=== PATIENT | male | born 1945 | race Caucasian/White ===

== ENCOUNTER 2022-11-03 18:24 | Inpatient (IN) | payer MEDICARE, MEDICAID, SELFPAY ==
[2022-11-03] VITALS (70 sets, daily range): BP systolic 73–105; BP diastolic 46–68; PULSE 92–113; RESP 13–40; TEMP 39.1; O2SAT 81–100; BMI 25.1
--- NOTE | 2022-11-03 18:07 | PM.HP ---
Providers/Chief Complaint Admitting Physician: Hema Boykin MD Chief Complaint: resp failure/sepsis History of Present Illness Reilly Patrick is a 77 year old male Coding Level of Care Code Acute Code for Chg Fwd
--- NOTE | 2022-11-03 18:27 | ECG_ITS ---
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1945 Requested By: Hema Boykin Order Number: [id number] Reading MD: TAMMY AGUAYO Measurements Intervals [place] Rate: 115 P: 5 CT: 248 QRS: -86 QRSD: 141 T: 34 QT: 325 QTc: 450 Interpretive Statements SINUS TACHYCARDIA WITH FIRST DEGREE AV BLOCK RIGHT BUNDLE BRANCH BLOCK [120+ ms QRS DURATION, UPRIGHT V1, 40+ ms S IN I/aVL/V4/V5/V6] LEFT ANTERIOR FASCICULAR BLOCK [QRS AXIS <= -45, QR IN I, RS IN II] No previous ECG available for comparison Electronically Signed On 11-04-2022 23:42:45 CDT by TAMMY AGUAYO [id number] f
--- NOTE | 2022-11-03 18:27 | XRR_ITS ---
PROCEDURE INFORMATION: Exam: XR Chest Exam date and time: 11/03/2022 6:43 PM Age: 77 years old Clinical indication: Shortness of breath; Additional info: Acute respiratory failure TECHNIQUE: Imaging protocol: Radiologic exam of the chest. Views: 1 view. COMPARISON: No relevant prior studies available. FINDINGS: Lungs: Increased pulmonary markings especially in the mid to lower chest suspicious for edema. Pulmonary vasculature appears congested. Mild narrowing of subglottic trachea with transverse diameter estimated at 1.2 cm as compared to 1.7 cm at thoracic inlet level. Pleural spaces: No pneumothorax. Heart/Mediastinum: Borderline prominence of cardiac silhouette. Bones/joints: No acute findings. XR/XR chest 1V portable [id number] IMPRESSION: Increased pulmonary markings suspicious for edema.
--- NOTE | 2022-11-03 18:37 | P.HP_ITS ---
Providers/Chief Complaint Admitting Physician: Hema Boykin MD Primary Care Provider: UNKNOWN Chief Complaint: resp failure/sepsis History of Present Illness Reilly Patrick is a 77 year old male transfer from [facility] for acute hypercapneic hypoxemic respiratory failure, sepsis, Acute Systolic HF and AMS. Discussed case with Dr. Shepherd. I accepted the transfer. On arrival to ICU pt was on 15L NR, minimally responsive, febrile 103.2 F (per EMS) hypotensive and tachycardic. Pt was immediately met by RT and with assistance of Dr. Cesar placed on BIPAP. Subsequently we began medical conversion of tachyarrythmia. Pt was given adenosine 12mg, additional 12m required. amiodarone also administered. pts HR responded well and started on amiodarone gtt. Per discussion with Dr. Shepherd, pt was in NH on the AM of 11/04. between 08:00 and 12:00 staff recognized he became more lethargic and labored with breathing. Upon arival to ED there was concern for resp failure sepsis and heart failure. initial GCM was 14 then dropped to 8. sepsis protocol initiated due to hypote nsion, tachycardia and concern for aspiration PNA given CXR. after 1L bolus NS given, pt required more non-rebreather up to 15L holding 90% sat. Immediately lasix 40mg IVP given and sats improved; however pt continued to be tachy from 120-150. bloodwork shows elevated WBC 14, BNP 926, trops 0.032, Cr 1.0, BUUN 21, Lactic acid 3.4. UA clean Pt seen at bedside unable to give definitive history. Able to follow commands but unable to give information in regards to events that transpired this AM, mig[address] medical Hx, medications. Family is not at bedside. pt was able to admit to feeling improved, SOB, fast heart rate, confused. Denied CP. unable to attain: Full Hx, Medical Hx, medication list. Review of Systems General: Reports: ROS unobtainable due to medical condition Const: Denies: chills or body aches Eyes: Denies: change in vision ENMT: Denies: throat pain Card: Reports: palpitations; Denies: chest pain Resp: Reports: dyspnea GI: Denies: abdominal pain or nausea Musc: Denies: neck pain or back pain Neuro: Denies: headache(s), numbness in extremities or weakness in extremities Medications/Allergies Allergies Allergy/AdvReac Type Severity Reaction Status Date / Time No Known Drug Allergies Allergy Unknown Verified 11/03/22 18:54 PFSH Acute PFSH: Medical History (Updated 11/03/22 @ 19:36 by Hema Boykin MD) CHF (congestive heart failure) Dementia TOMAS (generalized anxiety disorder) Insomnia 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 on BIPAP, tremors in bilateral upper extremity, diaphoretic psych: confused, GSC 14 Head: atraumatic, normocephalic, no mass/lesions Eyes: conjunctiva clear w/o exudate or hemorrhage. non-icteric, EOM intact, PERRLA. no signs of nystagmus Nose: nasal mucosa pink, septum midline Oropharynx: poor dentition, no blood present. BIPAP over mouth. Neck: FROM, no lymphadenopathy, no tracheal deviation, non tender, thyroid gland normal w/o mass. supple Chest: atraumatic, symmetrical CVD: tachycardic, regular rhythm, normal S1 and S2, 2/6 ALONZO in LSB audable, no R/G. 2+ pulse x 4 extremities, no JVD, no carotid bruit. Lungs: poor inspiratory effort on examination, BIPAP working well, audible rhonchi, possible crackles in lower lung base. No wheezing or rales. Abdomen: NT, ND, soft, NABS. No hepatosplenomegaly, no mass. : appropriate anatomy, Femoral pulse adequate Spine: no visible deformities, Limited visible ROM. Extremities: FROM and 5/5 strength in BUE and BLE. no visible joint abnormalities on active and passive ROM. Neuro: CNII-XII grossly intact. No atrophy, weakness, tremors or clonus.? 2+ DTR, no sensory abnormalities. Skin:? no rash, vesicles, lesions or lac, pads on pts chest, leads present. 2 IV lines (one in each arm). Data 11/03/22 19:00 11/03/22 19:00 Other data: Hospital records in paper chart. Pt only came with CBC, CMP, UA, EKG. minimal note written. no Hx besides what is on document. A&P Assessment and plan (1) Acute hypoxemic respiratory failure: BIPAP will get repeat ABG in AM consider pum consult if pt worsens low threshold for intubation if required (2) Dyspnea: Qualifiers: Dyspnea type: shortness of breath Qualified Code(s): R06.02 - Shortness of breath (3) Septic shock: Unclear etiology: concern for HAP given NH placement. BP holding steady, levophed gtt on HOLD continue Vanc, Imipenem, Azithro Cx pending (4) Systolic heart failure: BNP 926 likely 2/2 arrythmia bedside US showed good EF pending ECHO (5) AMS (altered mental status): 2/2 hypoxemia compounded by medical records stating he has delerium, parkinsons, TOMAS, MDD unclear medical Hx. unable to reach family Qualifiers: Altered mental status type: delirium Qualified Code(s): R41.0 - Disorientation, unspecified (6) Hospital acquired PNA: per CXR at [facility]. will continue empiric Abx at this time repeat CXR (7) Leukocytosis: Plan at [facility]: pt recieved vanc, azithro, imipenem IV. 1L A/ [facility] CHF exacerbation AMS Delerium parkinsons TOMAS, MDD P/ Amiodarone gtt levophed gtt on HOLD IV vanc, imipenem, azithro BIPAP lovenox NPO FULL code will await family for records, medications, medical diagnosis. Med rec unable to be completed at this time. Attestations Medical Necessity Statement*: hospitalization for critical care support Coding Level of Care Code 21248 Diagnoses Acute hypoxemic respiratory failure J96.01 Dyspnea R06.02 Dyspnea type: shortness of breath Septic shock A41.9; R65.21 Systolic heart failure I50.20 AMS (altered mental status) R41.0 Altered mental status type: delirium Hospital acquired PNA J18.9; Y95 Leukocytosis D72.829
[2022-11-03 19:12] LABS: Basophils % 0.3 %; Hematocrit 51.2 % (42.0-52.0); Hemoglobin 15.8 g/dL (11.7-16.6); Lymphocytes # 0.3 10^3/uL (0.8-4.8); Lymphocytes % 5.1 %; Mean Corpuscular HGB Conc 30.9 g/dL (30.0-36.0); Mean Corpuscular Hemoglobin 29.7 pg (28.0-34.0); Mean Corpuscular Volume 96.2 fl (80-94); Mean Platelet Volume 8.8 fL (7.4-10.4); Monocytes # 0.3 10^3/uL (0.2-0.9); Monocytes % 4.9 %; Neutrophils # 5.48 10^3/uL (1.8-7.7); Neutrophils % 89.5 %; Nucleated Red Blood Cells % 0 %; Platelet Count 208 10^3/cmm (130-400); Red Blood Count 5.32 10^6/uL (4.1-5.3); Red Cell Distribution Width 13.5 % (12.1-15.1); White Blood Count 6.1 10^3/uL (4.0-10.0)
[2022-11-03] MEDS: azithromycin 500 MG in sodium chloride 0.9% 250 ML 250 MG IV (19:14)
[2022-11-03] MEDS: enoxaparin 40 mg/0.4 mL Syringe SUBCUT (19:14)
[2022-11-03] MEDS: dextrose 5%-sod chloride 0.9% 1,000 ML 75 ML IV (19:17)
[2022-11-03 19:23] LABS: INR 1.06 (0.8-1.2)
[2022-11-03 19:24] LABS: Partial Thromboplastin Time 29.2 SECONDS (23.9-36.7)
[2022-11-03 19:28] LABS: Albumin Level 3.8 g/dL (3.5-5.2); Glucose 135 mg/dL (65-115); Lactic Sepsis W/Reflex 2.6 mmol/L (0.5-2.2); Magnesium 1.4 mg/dL (1.7-2.3)
[2022-11-03 20:25] LABS: Troponin T (5th) Once 29 ng/L (0-15)
[2022-11-03] MEDS: meropenem 1,000 MG in sodium chloride 0.9% (plus) 50 ML 100 MG IV (20:35)
[2022-11-03] MEDS: acetaminophen 650 mg Supp PR (20:37)
[2022-11-03 20:46] LABS: Lactic Sepsis W/Reflex 2.6 mmol/L (0.5-2.2)
[2022-11-03 20:50] LABS: Estmated Average Glucose 97
[2022-11-03 21:10] LABS: Chol HDL Ratio 3.17 mg/dL (1.0-5.00); Cholesterol 165 mg/dL (0-200); Free T4 Free Thyroxine 0.85 ng/dL (0.82-1.77); HDL Cholesterol 52 mg/dL (60-100); LDL Cholesterol Calculated 101 mg/dL (50-129); LDL HDL Ratio 1.94 RATIO (0.00-3.22); Thyroid Stimulating Hormone 2.38 uIU/mL (0.27-4.20); Triglycerides 59 mg/dL (0-150)
[2022-11-03 22:04] LABS: Add Urine Microscopic? YES; Bilirubin Urine 1+ (Negative); Blood Urine 3+ (Negative); Glucose Urine UA Norm (Normal); Ketones Urine 1+ (Negative); Leukocyte Esterase Urine 1+ (Negative); Nitrate Urine Negative (Negative); Protein Urine 1+ (Negative); Urine Appearance Hazy (CLEAR); Urine Color Dark Yellow (Yellow); Urobilinogen Urine 4 mg/dL (Negative); pH Urine 5 (5-7)
[2022-11-03 22:05] LABS: Add Urine Culture? Yes; Amorphous Sediment Urine 1+ /hpf; Bacteria Urine 1+ /hpf; Mucus Urine 1+ /hpf; RBC Urine >100 /hpf (0-2); Squamous Epithelial Cell Urine 0-4 /hpf (0-5)
[2022-11-03 22:06] LABS: Hyaline Casts Urine >100 /lpf
[2022-11-03 22:07] LABS: Reflex Lactate Order REFLEX LACTIC ORDERD
[2022-11-03 23:02] LABS: Albumin Level 3.6 g/dL (3.5-5.2); Anion Gap 18.8 (5-19); Blood Urea Nitrogen 18 mg/dL (8-23); Calcium 8.9 mg/dL (8.5-10.5); Carbon Dioxide 24 mmol/L (22-29); Chloride 104 mmol/L (98-107); Glucose 127 mg/dL (65-115); Potassium 3.8 mmol/L (3.5-5.1); Sodium 143 mmol/L (136-145)
[2022-11-03] MEDS: vancomycin 1,000 MG in sodium chloride 0.9% 250 ML 250 MG IV (23:22)
[2022-11-04] VITALS (107 sets, daily range): BP systolic 72–140; BP diastolic 49–109; PULSE 83–150; RESP 15–34; TEMP 37.2–37.6; O2SAT 83–100
[2022-11-04] MEDS: meropenem 1,000 MG in sodium chloride 0.9% (plus) 50 ML 100 MG IV ×3 (03:31→20:04)
[2022-11-04] MEDS: morphine 4 mg/mL SDV 1 mL IVP ×2 (05:17→18:38)
[2022-11-04 05:31] LABS: Basophils % 0.4 %; Eosinophils # 0.1 10^3/uL (0.0-0.8); Eosinophils % 0.7 %; Hemoglobin 15.7 g/dL (11.7-16.6); Lymphocytes # 0.6 10^3/uL (0.8-4.8); Lymphocytes % 6.5 %; Mean Corpuscular HGB Conc 31.4 g/dL (30.0-36.0); Mean Corpuscular Hemoglobin 30.3 pg (28.0-34.0); Mean Corpuscular Volume 96.3 fl (80-94); Mean Platelet Volume 9.3 fL (7.4-10.4); Monocytes # 0.8 10^3/uL (0.2-0.9); Monocytes % 8.1 %; Neutrophils # 8.33 10^3/uL (1.8-7.7); Neutrophils % 83.9 %; Nucleated Red Blood Cells % 0 %; Platelet Count 193 10^3/cmm (130-400); Red Blood Count 5.19 10^6/uL (4.1-5.3); Red Cell Distribution Width 13.6 % (12.1-15.1); White Blood Count 9.9 10^3/uL (4.0-10.0)
[2022-11-04 05:53] LABS: Lactic Sepsis W/Reflex 2.8 mmol/L (0.5-2.2)
--- NOTE | 2022-11-04 06:00 | USCV_ITS ---
Reilly Patrick Age: 77 Gender: M : 1945 Exam Date: 11/04/2022 14:39 Ordering Phys: Hema Boykin MD Technologist: NU Exam Location: [facility] [place] Indication: shock BP: / HR: Rhythm: Sinus Technical Quality: Adequate MEASUREMENTS (Male / Female) Normal Values 2D ECHO LVOT Diameter 2.3 cm LV Ejection Fraction MOD 2C 54.2 % LV Ejection Fraction 2C AL 53.2 % LA Diameter 3.6 cm IVC Diameter 2.9 cm M-MODE Aortic Annulus Diameter 3.6 cm LA Ao Ratio MM 1.0 MV E Point Septal Separation 0.8 cm DOPPLER AV Peak Velocity 58.0 cm/s LVOT Peak Velocity 53.0 cm/s AV Area Cont Eq vti 4.9 cm squared AV Area Cont Eq pk 3.9 cm squared MV Area PHT 5.0 cm squared Mitral E to A Ratio 0.8 MV E' Velocity 38.0 cm/s Mitral E to MV E' Ratio 6.2 Mitral E to LV E' Lateral Ratio 5.4 Mitral E to LV E' Septal Ratio 7.3 TR Peak Velocity 335.0 cm/s TR Peak Gradient 44.9 mmHg TV Peak E Velocity 71.0 cm/s Right Atrial Pressure 9.0 mmHg Pulmonary Artery Systolic Pressu 53.9 mmHg PV Peak Velocity 61.0 cm/s FINDINGS Left Ventricle Normal left ventricular size, systolic function and wall thickness, with no regional wall motion abnormalities. Left ventricular ejection fraction is estimated at 60 %. Grade I/IV diastolic dysfunction (abnormal relaxation filling pattern), normal to mildly elevated filling pressures. Right Ventricle The right ventricle is normal in size and function. Right Atrium The right atrium is normal in size. Left Atrium The left atrium is normal in size. Mitral Valve Moderately thickened mitral valve. Mild mitral annular calcification. No mitral valve stenosis. Trace mitral valve regurgitation. Aortic Valve Mild aortic valve calcification. No aortic valve stenosis. Trace aortic valve regurgitation. Tricuspid Valve Mild tricuspid valve regurgitation. Pulmonic Valve Structurally normal pulmonic valve without significant stenosis. There is no pulmonic regurgitation. Pericardium Normal pericardium without effusion. Aorta Normal ascending aorta dimension. IVC The inferior vena cava appears normal. CONCLUSIONS 1-Normal left ventricular size, systolic function and wall thickness, with no regional wall motion abnormalities. Left ventricular ejection fraction is estimated at 60 %. Grade I/IV diastolic dysfunction (abnormal relaxation filling pattern), normal to mildly elevated filling pressures. 2-There is no pericardial effusion. 3-No significant valve abnormalities. 4-Right atrial pressure is around 5 mm of mercury. Nika Murrell MD (Electronically Signed) Final Date: 04 November 2022 23:24 S
[2022-11-04 06:04] LABS: Alanine Aminotransferase 15 U/L (0-41); Albumin Level 3.5 g/dL (3.5-5.2); Alkaline Phosphatase 59 U/L (40-130); Anion Gap 16.2 (5-19); Aspartate Amino Transferase 23 U/L (0-40); Blood Urea Nitrogen 25 mg/dL (8-23); Calcium 8.7 mg/dL (8.5-10.5); Carbon Dioxide 26 mmol/L (22-29); Chloride 106 mmol/L (98-107); Globulin 3.4 g/dL (1.3-4.6); Glucose 117 mg/dL (65-115); NT Pro B Type Natriuretic Pept 2905 pg/mL (0-450); Osmolality Calculated 303 mOsm/kg (285-295); Potassium 4.2 mmol/L (3.5-5.1); Sodium 144 mmol/L (136-145); Total Bilirubin 0.9 mg/dL (0.15-1.2); Total Protein 6.9 g/dL (6.6-8.7)
[2022-11-04 06:54] LABS: Reflex Lactate Order REFLEX LACTIC ORDERD
--- NOTE | 2022-11-04 07:53 | P.PN_ITS ---
Subjective Subjective: Seen at bedside this AM GCS: 14 More alert this AM. able to follow commands. alert to person but not time or place. Denies having CP or difficulties breathing. tolerating BIPAP well Difficult to understand w/o dentures. Home medications attained Vitals/I&O/Wt Last Vital Signs Temp 99.6 F 11/04/22 00:15 Pulse 90 11/04/22 06:00 Resp 18 11/04/22 06:00 BP 89/59 11/04/22 06:00 Pulse Ox 97 11/04/22 06:00 O2 Del Method 11/03/22 18:59 FiO2 60 11/04/22 06:00 11/03/22 11/04/22 11/04/22 22:59 06:59 14:59 Intake Total 300 / 300 507.18 / 807.18 Output Total 235 / 235 225 / 460 Balance 65 / 65 282.18 / 347.18 Weight last 48 hrs Weight 190 lb 11.2 oz Weight 190 lb 8 oz Weight 192 lb 9 oz Physical Exam Narrative: Lines: IV x 2, BIPAP, General: alert but not oriented. on BIPAP, psych: less confused, GSC 14 Head: atraumatic, normocephalic, no mass/lesions Eyes: conjunctiva clear w/o exudate or hemorrhage. non-icteric, EOM intact, PERRLA. no signs of nystagmus Nose: nasal mucosa pink, septum midline Oropharynx: poor dentition, no blood present. BIPAP over mouth. Neck: FROM, no lymphadenopathy, no tracheal deviation, non tender, thyroid gland normal w/o mass. supple Chest: atraumatic, symmetrical CVD: tachycardic, regular rhythm, normal S1 and S2, 2/6 ALONZO in LSB audable, no R/G. 2+ pulse x 4 extremities, no JVD, no carotid bruit. Lungs: poor inspiratory effort on examination, BIPAP working well, audible rhonchi,Left lower lobe faint crackles, No wheezing or rales. Abdomen: NT, ND, soft, NABS. No hepatosplenomegaly, no mass. : appropriate anatomy, Femoral pulse adequate Spine: no visible deformities, Limited visible ROM. Extremities: FROM and 5/5 strength in BUE and BLE. no visible joint abnormalities on active and passive ROM. Neuro: CNII-XII grossly intact. No atrophy, weakness, tremors or clonus.? 2+ DTR, no sensory abnormalities. Skin:? no rash, vesicles, lesions or lac, pads on pts chest, leads present. 2 IV lines (one in each arm). Urinary Catheter Management: Pickering: Cath Placed During This Visit: no Reason for Continuing Indwelling Catheter: Accurate Measurement of Urinary Output in Critically Ill Patients Data 11/04/22 05:15 11/04/22 05:15 Micro: Microbiology 11/03/22 19:00 Blood Culture - Preliminary Blood SPECIMEN COLLECTED 11/03/22 18:55 Blood Culture - Preliminary Blood SPECIMEN COLLECTED A&P Assessment and plan (1) Acute hypoxemic respiratory failure: BIPAP will get repeat ABG in AM consider pum consult if pt worsens low threshold for intubation if required (2) Dyspnea: Qualifiers: Dyspnea type: shortness of breath Qualified Code(s): R06.02 - Shortness of breath (3) Septic shock: Unclear etiology: concern for HAP given NH placement. BP holding steady, levophed gtt on HOLD continue Vanc, Imipenem, Azithro Cx pending (4) Systolic heart failure: BNP 926 likely 2/2 arrythmia bedside US showed good EF pending ECHO will give lasix 20mg IVP x 1, re-eval at time. (5) CHF exacerbation: will diures and re-eval Lasix 20mg IVP x 1 (6) AMS (altered mental status): 2/2 hypoxemia compounded by medical records stating he has delerium, parkinsons, TOMAS, MDD unclear medical Hx. unable to reach family Qualifiers: Altered mental status type: delirium Qualified Code(s): R41.0 - Disorientation, unspecified (7) Hospital acquired PNA: per CXR at [facility]. will continue empiric Abx at this time repeat CXR (8) Leukocytosis: resolved (9) Hypomagnesemia: 4mg IV x 1 (10) Hypophosphatasia: 15mmol Kphos IV x 1 Plan pending ECHO, ABG Monitor closely, will attempt to diures slowly given low BP. Levophed on standby. MAP 72 this AM Medrec completed. appeared to have some necessity for lasix 40mg PO qd (likely HF or HTN per [facility] ED note) Continue Amiodarone gtt Continue IV Abx until Cx back NPO at this time PT/OT/ST FULL code A/ Acute hopoxemic respiratory failure [facility] Aquired PNA? CHF exacerbation AMS Delerium parkinsons TOMAS, MDD INTERVAL NOTE: seen at 12:00pm. off BIPAP on 4L NC, alert and oriented to person and place. GCS 14. Responded well to IV lasix 20mg x 1. States he is feeling improved. following commands. will attempt PO intake with dysphagial level 4 diet. will await family for records, medications, medical diagnosis. Med rec unable to be completed at this time. Attestations Medical Necessity Statement*: requires hospitalization in the ICU Coding Level of Care Code 30888 Diagnoses Acute hypoxemic respiratory failure J96.01 Dyspnea R06.02 Dyspnea type: shortness of breath Septic shock A41.9; R65.21 Systolic heart failure I50.20 CHF exacerbation I50.9 AMS (altered mental status) R41.0 Altered mental status type: delirium Hospital acquired PNA J18.9; Y95 Leukocytosis D72.829 Hypomagnesemia E83.42 Hypophosphatasia E83.39
[2022-11-04 08:01] LABS: ABG PCO2 41.6 mmHg (35-45); ABG PH Result 7.39 (7.35-7.45); Alveolar-Arterial Oxygen Gradi 77.8 mmHg (5-10); Arterial Blood Gas Hematocrit 51.1 % (42-52); Base Excess ABG 0.2 mmol/L (-2.0-2.0); Blood Gas Allen Test Pos; Blood Gas Operator Identificat AMH; Blood Gas Sample Site Radial, left; Blood Gas Sample Type Arterial; Carboxyhemoglobin 0.5 %THgb (0.4-20.1); HCO3 ABG 25.3 mmol/L (22-26); HGB O2 Sat 91.5 % (95-100); Ionized Calcium Level - ABG 1.2 mmol/L (1.1-1.4); Methemoglobin 0.6 % (0.4-1.5); Oxygen Device NRB; Oxygen Saturation ABG 92.5; PO2 ABG 63.2 mmHg (80.0-100.0); Potassium Level - ABG 3.9 mmol/L (3.5-5.0); Total Hemoglobin 16.7 g/dL (14-18)
[2022-11-04] MEDS: sertraline 100 mg Tablet 200 MG PO (08:30)
[2022-11-04] MEDS: FUROsemide 10 mg/mL SDV 2mL 20 MG IVP (08:30)
[2022-11-04] MEDS: pantoprazole 40 mg SDV IVP (08:30)
[2022-11-04] MEDS: aspirin 81 mg Chew Tablet PO (08:30)
[2022-11-04] MEDS: magnesium sulfate premix 4 GM/100 ML PREMIX IV (08:57)
[2022-11-04] MEDS: dextrose 5%-sod chloride 0.9% 1,000 ML 75 ML IV ×2 (09:53→22:56)
--- NOTE | 2022-11-04 10:15 | PC.NURSE ---
Patient is oriented to self and situation at this time. Restraints removed and one on one sitter removed. this nurse remains close to the patient at this time.
[2022-11-04] MEDS: ipratropium-albuterol 3 mL Neb INHALATION ×3 (11:09→23:41)
[2022-11-04] MEDS: vancomycin 1,000 MG in sodium chloride 0.9% 250 ML 250 MG IV ×2 (11:59→22:55)
[2022-11-04] MEDS: azithromycin 500 MG in sodium chloride 0.9% 250 ML 250 MG IV (17:33)
[2022-11-04] MEDS: divalproex DR 250 mg Tablet PO (17:33)
[2022-11-04] MEDS: enoxaparin 40 mg/0.4 mL Syringe SUBCUT (17:33)
[2022-11-04] MEDS: amiodarone 200 mg Tablet 400 MG PO (17:58)
[2022-11-04] MEDS: dexmedetomidine 400 MCG in sodium chloride 0.9% (100 ml) 100 ML IV (18:58)
--- NOTE | 2022-11-04 19:10 | PC.NURSE ---
po meds prior had evening meal upright in bed .. had resp distress noted placed back on bipap sat decreased down to 84 diaphoritic and resp distresss ,, propbable aspiration ... doctror called for restless orders noted
[2022-11-05] VITALS (56 sets, daily range): BP systolic 81–129; BP diastolic 53–86; PULSE 62–107; RESP 16–30; TEMP 36.7–37.6; O2SAT 87–100; BMI 27.0
[2022-11-05] MEDS: morphine 4 mg/mL SDV 1 mL IVP (01:09)
[2022-11-05] MEDS: dexmedetomidine 400 MCG in sodium chloride 0.9% (100 ml) 100 ML 24.74 MCG IV (01:10)
[2022-11-05] MEDS: meropenem 1,000 MG in sodium chloride 0.9% (plus) 50 ML 100 MG IV ×3 (03:13→20:02)
[2022-11-05] MEDS: ipratropium-albuterol 3 mL Neb INHALATION ×6 (03:15→23:23)
[2022-11-05 04:19] LABS: Basophils % 0.3 %; Eosinophils # 0.1 10^3/uL (0.0-0.8); Eosinophils % 0.7 %; Hematocrit 41.7 % (42.0-52.0); Hemoglobin 12.7 g/dL (11.7-16.6); Lymphocytes # 0.8 10^3/uL (0.8-4.8); Lymphocytes % 10.8 %; Mean Corpuscular HGB Conc 30.5 g/dL (30.0-36.0); Mean Corpuscular Hemoglobin 29.3 pg (28.0-34.0); Mean Corpuscular Volume 96.3 fl (80-94); Mean Platelet Volume 9.3 fL (7.4-10.4); Monocytes # 0.6 10^3/uL (0.2-0.9); Monocytes % 8.5 %; Neutrophils # 5.47 10^3/uL (1.8-7.7); Nucleated Red Blood Cells % 0 %; Platelet Count 148 10^3/cmm (130-400); Red Blood Count 4.33 10^6/uL (4.1-5.3); Red Cell Distribution Width 13.7 % (12.1-15.1); White Blood Count 6.9 10^3/uL (4.0-10.0)
[2022-11-05 04:40] LABS: Alanine Aminotransferase 11 U/L (0-41); Albumin Level 2.9 g/dL (3.5-5.2); Alkaline Phosphatase 39 U/L (40-130); Anion Gap 10.7 (5-19); Aspartate Amino Transferase 17 U/L (0-40); Blood Urea Nitrogen 23 mg/dL (8-23); Calcium 8.1 mg/dL (8.5-10.5); Carbon Dioxide 28 mmol/L (22-29); Chloride 112 mmol/L (98-107); Globulin 2.8 g/dL (1.3-4.6); Glucose 117 mg/dL (65-115); Osmolality Calculated 309 mOsm/kg (285-295); Potassium 3.7 mmol/L (3.5-5.1); Sodium 147 mmol/L (136-145); Total Bilirubin 0.4 mg/dL (0.15-1.2); Total Protein 5.7 g/dL (6.6-8.7)
[2022-11-05] MEDS: dexmedetomidine 400 MCG in sodium chloride 0.9% (100 ml) 100 ML 26.99 MCG IV ×5 (05:00→20:35)
--- NOTE | 2022-11-05 07:00 | P.PN_ITS ---
Subjective Subjective: GCS: 14 yesterday morning was able to wean off BIPAP. Pts mentation significantly improved. was able to wean down to 4L NC. Converted to PO amiodarone. Later in the afternoon pt aspirated and required to be put back on BIPAP. Overnight: wore BIPAP Seen this AM in bed, slightly more lethargic than yday but fairly early in the morning and sleepy. pt is off BIPAP and on 5L NC. Audible gugrling at this time. HR and BP stable. Currently made NPO until re-evaled by ST. Rangel CP, palpitations, SOB, N/V, abd pain. Medications: Reviewed: Yes Vitals/I&O/Wt Last Vital Signs Temp 99.6 F 11/05/22 04:00 Pulse 68 11/05/22 06:00 Resp 19 H 11/05/22 06:00 BP 110/70 11/05/22 06:00 Pulse Ox 100 11/05/22 06:00 O2 Del Method 11/05/22 04:00 O2 Flow Rate 4 11/04/22 13:57 FiO2 60 11/05/22 06:00 11/04/22 11/05/22 11/05/22 22:59 06:59 14:59 Intake Total 1764.475 / 3269.475 445.401 / 3714.876 Output Total 1200 / 1200 250 / 1450 Balance 564.475 / 2069.475 195.401 / 2264.876 Weight last 48 hrs Weight 205 lb Weight 190 lb 11.2 oz Weight 190 lb 8 oz Weight 192 lb 9 oz Physical Exam Narrative: Lines: IV x 2, 5L NC General: alert but not oriented. on NC psych: less confused, GSC 14 Head: atraumatic, normocephalic, no mass/lesions Eyes: conjunctiva clear w/o exudate or hemorrhage. non-icteric, EOM intact, PERRLA. no signs of nystagmus Nose: nasal mucosa pink, septum midline Oropharynx: poor dentition, no blood present. BIPAP over mouth. Neck: FROM, no lymphadenopathy, no tracheal deviation, non tender, thyroid gland normal w/o mass. supple Chest: atraumatic, symmetrical CVD: tachycardic, regular rhythm, normal S1 and S2, 2/6 ALONZO in LSB audable, no R/G. 2+ pulse x 4 extremities, no JVD, no carotid bruit. Lungs: good inspiratory effort with audible crackles/rhonchi. no wheezing pr esent. Abdomen: NT, ND, soft, NABS. No hepatosplenomegaly, no mass. : appropriate anatomy, Femoral pulse adequate Spine: no visible deformities, Limited visible ROM. Extremities: FROM and 5/5 strength in BUE and BLE. no visible joint abnormalities on active and passive ROM. Neuro: CNII-XII grossly intact. No atrophy, weakness, tremors no sensory abnormalities. Skin:? no rash, vesicles, lesions or lac, pads on pts chest, leads present. 2 IV lines (one in each arm). Urinary Catheter Management: Pickering: Cath Placed During This Visit: no Reason for Continuing Indwelling Catheter: Accurate Measurement of Urinary Output in Critically Ill Patients Data 11/05/22 03:49 11/05/22 03:49 Micro: Microbiology 11/03/22 19:00 Blood Culture - Preliminary Blood NEGATIVE TO DATE 11/03/22 18:55 Blood Culture - Preliminary Blood NEGATIVE TO DATE A&P Assessment and plan (1) Acute hypoxemic respiratory failure: transitioned form BIPAP to NC again this AM. will get CXR and ABG this AM Consider pulmonary consult if pt worsens. (2) Dyspnea: slight worsening this AM. likely 2/2 aspiration yday Qualifiers: Dyspnea type: shortness of breath Qualified Code(s): R06.02 - Shortness of breath (3) Septic shock: Unclear etiology: concern for HAP given NH placement. Aspiration? BP holding steady, levophed gtt on HOLD continue Vanc, Imipenem, Azithro Cx pending (4) Aspiration into respiratory tract: event occurred at 18:30 on 11/04/22 pending CXR Qualifiers: Encounter type: initial encounter Qualified Code(s): T17.908A - Unspecified foreign body in respiratory tract, part unspecified causing other injury, initial encounter (5) Hospital acquired PNA: [facility]. will continue empiric Abx at this time (6) Systolic heart failure: BNP 926 likely 2/2 arrythmia bedside US showed good EF pending ECHO may require further lasix. will re-eval (7) CHF exacerbation: diuresed well by lasix 20mg IV x 1 (8) AMS (altered mental status): 2/2 hypoxemia on admission mentation has improved continues to exhibit dementia but back to baseline per sister Qualifiers: Altered mental status type: delirium Qualified Code(s): R41.0 - Disorientation, unspecified (9) Leukocytosis: resolved (10) Hypomagnesemia: 4mg IV x 1 on 11/03 will re-eval this AM (11) Hypophosphatasia: 15mmol Kphos IV x 1 on 11/03 will re-eval this AM Plan pending ECHO, CXR, ABG, additional Am bloodwork will monitor today. switched back to NC from BIPAP. await ST eval of pt. monitor closely If pt improves can consider transfer to stepdown on amio - likely on 11/06/22 continue weaning down amio. currently 400mg BID, will bring down to 200 BID on 11/06/22 MAP stable, levophed on standby Continue IV Abx until Cx back Dysphagea 4 diet, to re-eval this AM s/p aspiration last evening PT/OT/ST FULL code A/ Acute hopoxemic respiratory failure [facility] Aquired PNA? aspiration? CHF exacerbation AMS Delerium rosalva MARIN, MDD Attestations Medical Necessity Statement*: requires hospitalization in the ICU Coding Level of Care Code 75541 Diagnoses Acute hypoxemic respiratory failure J96.01 Dyspnea R06.02 Dyspnea type: shortness of breath Septic shock A41.9; R65.21 Aspiration into respiratory tract T17.908A Encounter type: initial encounter Hospital acquired PNA J18.9; Y95 Systolic heart failure I50.20 CHF exacerbation I50.9 AMS (altered mental status) R41.0 Altered mental status type: delirium Leukocytosis D72.829 Hypomagnesemia E83.42 Hypophosphatasia E83.39
--- NOTE | 2022-11-05 07:02 | XRR_ITS ---
PROCEDURE INFORMATION: Exam: XR Chest Exam date and time: 11/05/2022 6:13 AM Age: 77 years old Clinical indication: Other: Aspiration TECHNIQUE: Imaging protocol: Radiologic exam of the chest. Views: 1 view. COMPARISON: CR (CHEST, ) 11/03/2022 6:43 PM FINDINGS: Lungs: Low lung volumes. There is increased lung markings and haziness of the lower lungs, which in the setting of cardiomegaly is suggestive of pulmonary congestion. Pneumonia should be excluded clinically. Pleural spaces: Unremarkable. No pleural effusion. No pneumothorax. Heart/Mediastinum: Stable cardiomediastinal silhouette. Bones/joints: Unremarkable. XR/XR chest 1V portable [id number] IMPRESSION: Nonspecific imaging findings, which can be seen with pulmonary congestion or pneumonia. Clinical correlation is recommended.
[2022-11-05 07:35] LABS: ABG PCO2 48.1 mmHg (35-45); ABG PH Result 7.37 (7.35-7.45); Base Excess ABG 2.1 mmol/L (-2.0-2.0); Blood Gas Allen Test Pos; Blood Gas Operator Identificat CAK; Blood Gas Sample Site Radial, left; Blood Gas Sample Type Arterial; Carboxyhemoglobin 0.8 %THgb (0.4-20.1); HCO3 ABG 28.1 mmol/L (22-26); HGB O2 Sat 98.1 % (95-100); Ionized Calcium Level - ABG 1.2 mmol/L (1.1-1.4); Methemoglobin 0.8 % (0.4-1.5); Oxygen Device NC; Oxygen Saturation ABG 99.7; Potassium Level - ABG 3.8 mmol/L (3.5-5.0); Total Hemoglobin 13.4 g/dL (14-18)
[2022-11-05 07:48] LABS: Magnesium 1.9 mg/dL (1.7-2.3); Phosphorus 1.4 mg/dL (2.5-4.5)
[2022-11-05] MEDS: pantoprazole 40 mg SDV IVP (09:44)
--- NOTE | 2022-11-05 10:00 | PC.NURSE ---
New Orders Received Patient to be NPO per doctor orders until speech eval.
[2022-11-05 11:03] LABS: Vancomycin Trough 10.7 ug/mL (10-15)
[2022-11-05] MEDS: vancomycin 1,000 MG in sodium chloride 0.9% 250 ML 250 MG IV (11:16)
[2022-11-05] MEDS: dextrose 5%-sod chloride 0.9% 1,000 ML 75 ML IV (13:32)
[2022-11-05] MEDS: azithromycin 500 MG in sodium chloride 0.9% 250 ML 250 MG IV (18:30)
[2022-11-05] MEDS: enoxaparin 40 mg/0.4 mL Syringe SUBCUT (18:31)
[2022-11-05] MEDS: FUROsemide 10 mg/mL SDV 4mL 40 MG IVP (20:35)
--- NOTE | 2022-11-05 21:13 | PC.NURSE ---
Called Dr. Gonzalez with respiratory concerns. Patient has audible crackles. Scheduled to receive 40mg PO lasix during dayshift but unable to take d/t new NPO order. Patient also has very weak cough. When attempting to suction, patient clamps down and unable to clear airway fully. Patients vital signs stable. Order received to hold D5+NS and give 40mg lasix IVP once. Dr. Gonzalez later at bedside to assess patient around 2044. Order to NT suction if needed to clear secretions. No further orders at this time.
[2022-11-05] MEDS: vancomycin 1,250 MG/250 ML PIGGYBACK 250 MG IV (21:23)
[2022-11-06] VITALS (50 sets, daily range): BP systolic 92–139; BP diastolic 53–81; PULSE 61–98; RESP 14–29; TEMP 36.4–36.8; O2SAT 84–99; BMI 25.7
[2022-11-06] MEDS: dexmedetomidine 400 MCG in sodium chloride 0.9% (100 ml) 100 ML 26.99 MCG IV ×6 (00:29→21:05)
[2022-11-06] MEDS: ipratropium-albuterol 3 mL Neb INHALATION ×6 (03:06→23:15)
[2022-11-06] MEDS: meropenem 1,000 MG in sodium chloride 0.9% (plus) 50 ML 100 MG IV ×3 (04:00→20:12)
[2022-11-06 04:42] LABS: Basophils % 0.4 %; Eosinophils # 0.2 10^3/uL (0.0-0.8); Eosinophils % 3.1 %; Hematocrit 45.3 % (42.0-52.0); Hemoglobin 13.7 g/dL (11.7-16.6); Lymphocytes # 0.9 10^3/uL (0.8-4.8); Lymphocytes % 12.1 %; Mean Corpuscular HGB Conc 30.2 g/dL (30.0-36.0); Mean Corpuscular Hemoglobin 29.6 pg (28.0-34.0); Mean Corpuscular Volume 97.8 fl (80-94); Mean Platelet Volume 9.7 fL (7.4-10.4); Monocytes # 0.6 10^3/uL (0.2-0.9); Monocytes % 7.2 %; Neutrophils # 5.83 10^3/uL (1.8-7.7); Neutrophils % 76.5 %; Nucleated Red Blood Cells % 0 %; Platelet Count 160 10^3/cmm (130-400); Red Blood Count 4.63 10^6/uL (4.1-5.3); Red Cell Distribution Width 13.5 % (12.1-15.1); White Blood Count 7.6 10^3/uL (4.0-10.0)
[2022-11-06] MEDS: morphine 4 mg/mL SDV 1 mL IVP (05:52)
[2022-11-06 05:53] LABS: Alanine Aminotransferase 9 U/L (0-41); Albumin Level 2.9 g/dL (3.5-5.2); Alkaline Phosphatase 52 U/L (40-130); Anion Gap 13.7 (5-19); Aspartate Amino Transferase 16 U/L (0-40); Blood Urea Nitrogen 17 mg/dL (8-23); Calcium 8.7 mg/dL (8.5-10.5); Carbon Dioxide 27 mmol/L (22-29); Chloride 110 mmol/L (98-107); Globulin 3.2 g/dL (1.3-4.6); Glucose 112 mg/dL (65-115); Osmolality Calculated 306 mOsm/kg (285-295); Potassium 3.7 mmol/L (3.5-5.1); Sodium 147 mmol/L (136-145); Total Bilirubin 0.5 mg/dL (0.15-1.2); Total Protein 6.1 g/dL (6.6-8.7)
[2022-11-06] MEDS: pantoprazole 40 mg SDV IVP (08:42)
[2022-11-06] MEDS: vancomycin 1,250 MG/250 ML PIGGYBACK 250 MG IV ×2 (09:26→21:05)
--- NOTE | 2022-11-06 10:23 | PC.CHAP ---
Pastoral Care Encounter/Spiritual Assessment Type of Contact [] Declined grievance and appeals coordinator visit [] Patient/Family/Request visit [] Outpatient visit [] Follow-up visit [] Physician referral [] Code/Alert [x] Routine visit [] Staff referral [] Actively dying [] Patient sleeping [] Family support [] [] Out of room [] Palliative care [] [] Receiving care in room [] Pre-surgical visit [] Trauma [] Long length of stay [x] ICU visit [] Other: Relational/Emotional Strength [] Patient feels connected with others/family/visitors/staff [] Distress [] Loneliness/isolation [] Abandonment Spirituality of Patient [] Person of Nidia [] Attends Mandaeism of their Nidia [] Believes in Prayer [] Reads Bible or Sabianism materials [] There are Spiritual issues to be addressed 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 Interventions [x] Prayer [] Active listening [] Non-anxious presence [] Spiritual/emotional support [] Crisis/trauma care [] Spiritual counseling [] Bereavement support [] Provided bereavement packet [] Provided Bible/devotional materials [] Provided toy/stuffed animal, coloring book to patient or family member [] Provided Communion [] Anointing/[place] [] Salvation [x] Completed spiritual assessment [] Other: Impact on Illness or Injury [] Angry [] Fearful [] Anxious [] Often cries [] Exhaustion [] Unable to work [] Unable to attend catholic [] Unable to walk/stand [] Unable to read [] Unable to drive [] Unable to eat/drink [] Unable to sleep [] Unable to be with family [] Patient intubated [] Other: Summary Time spent with patient
--- NOTE | 2022-11-06 14:09 | CTR_ITS ---
PROCEDURE INFORMATION: Exam: CTA Chest With Contrast Exam date and time: 11/06/2022 5:50 PM Age: 77 years old Clinical indication: Cough and dyspnea and wheezing; Additional info: Evaluate for pe TECHNIQUE: Imaging protocol: Computed tomographic angiography of the chest with contrast. 3D rendering (Not supervised by radiologist): MIP and/or 3D reconstructed images were created by the technologist. Radiation optimization: All CT scans at this facility use at least one of these dose optimization techniques: automated exposure control; mA and/or kV adjustment per patient size (includes targeted exams where dose is matched to clinical indication); or iterative reconstruction. Contrast material: OMNI 350; Contrast volume: 100 ml; Contrast route: INTRAVENOUS (IV); REPORTING DATA: Count of CT and Cardiac NM exams in prior 12 months: This patient has received [address] and 0 known cardiac nuclear medicine studies in the 12 months prior to the current study. COMPARISON: CR (CHEST, ) 11/05/2022 6:13 AM RADIATION DOSE METRICS: Total DLP (mGy-cm): 528.58 FINDINGS: Pulmonary arteries: No definite filling defects identified in the pulmonary arteries. Evaluation of the lower lobes is limited by some motion artifact. Aorta: 4.0 cm aneurysmal dilatation of the thoracic aorta. No visible dissection although contrast opacification is suboptimal. Lungs: Dense consolidation in the posterior right and left lower lobes. Patchy scattered ground-glass opacities in both lungs. No suspicious nodule visualized. Pleural spaces: Trace bilateral pleural effusions. No pneumothorax. Heart: Unremarkable. No cardiomegaly. No pericardial effusion. Lymph nodes: Calcified left hilar lymph nodes. Prominent mediastinal and hilar lymph nodes are most likely reactive. Gallbladder and bile ducts: Multiple calcified stones in the gallbladder. Liver: Multiple hypodense nodules in the liver, the largest in the right lobe measuring 2.5 cm, Hounsfield units 40. Spleen: Calcified granulomas in the spleen. Bones/joints: Degenerative changes of the spine. No fracture. Soft tissues: Unremarkable. CT/CT angio chest PE protcl [id number] IMPRESSION: 1. No evidence for pulmonary embolus. 2. Multilobar pneumonia with dense consolidation in the posterior lower lobes. 3. Trace pleural effusions. 4. Multiple low-density nodules in the liver. Metastatic disease is not excluded. Follow-up with liver MRI is recommended. 5. Cholelithiasis.
--- NOTE | 2022-11-06 14:09 | CTR_ITS ---
PROCEDURE INFORMATION: Exam: CT Head Without Contrast Exam date and time: 11/06/2022 5:46 PM Age: 77 years old Clinical indication: Altered mental status/memory loss TECHNIQUE: Imaging protocol: Computed tomography of the head without contrast. Radiation optimization: All CT scans at this facility use at least one of these dose optimization techniques: automated exposure control; mA and/or kV adjustment per patient size (includes targeted exams where dose is matched to clinical indication); or iterative reconstruction. REPORTING DATA: Count of CT and Cardiac NM exams in prior 12 months: This patient has received [address] and 0 known cardiac nuclear medicine studies in the 12 months prior to the current study. COMPARISON: No relevant prior studies available. RADIATION DOSE METRICS: Total DLP (mGy-cm): 1169.78 FINDINGS: Brain: No acute infarct. No hemorrhage. Involutional changes of the brain, commensurate with age. No mass effect. Cerebral ventricles: No ventriculomegaly. Paranasal sinuses: Visualized sinuses are unremarkable. No fluid levels. Mastoid air cells: Visualized mastoid air cells are well aerated. Bones/joints: Unremarkable. No acute fracture. Soft tissues: Unremarkable. CT/CT head wo con* [id number] IMPRESSION: No acute intracranial abnormality.
--- NOTE | 2022-11-06 14:13 | P.PN_ITS ---
Subjective Subjective: Patient noted to have significant wheezing on exam, requiring 5 L/min supplemental O2. He is extremely lethargic. Wakes up easily and tells me his name and date of correctly, however increasingly somnolent. He has been n.p.o. since yesterday. Currently afebrile. Medications: Reviewed: Yes Vitals/I&O/Wt Last Vital Signs Temp 98.0 F 11/06/22 08:00 Pulse 71 11/06/22 12:30 Resp 24 H 11/06/22 12:30 BP 122/63 11/06/22 12:30 Pulse Ox 97 11/06/22 12:30 O2 Del Method 11/06/22 11:44 O2 Flow Rate 4 11/06/22 11:44 FiO2 60 11/05/22 06:00 11/05/22 11/06/22 11/06/22 22:59 06:59 14:59 Intake Total 739.468 / 2247.468 353.465 / 2600.933 508 / 508 Output Total 2600 / 2600 700 / 3300 Balance -1860.532 / -352.532 -346.535 / -699.067 508 / 508 Weight last 48 hrs Weight 88.451 kg Weight 92.986 kg Physical Exam Narrative: General: Audible wheezing, looks extremely uncomfortable HEENT: PERRLA, pupils bilaterally equal and reactive, pallors not present Chest: Wheezing to auscultation bilaterally CVS: S1-S2 regular, no murmurs, no tachycardia, no gallops, no rubs Abdomen: Soft, nontender, no organomegaly, bowel sounds present Neuro: No focal deficits, moves all extremities in bed Extremities: 1+ pitting edema lower extremities Urinary Catheter Management: [place]: Cath Placed During This Visit: no Reason for Continuing Indwelling Catheter: Accurate Measurement of Urinary Output in Critically Ill Patients Data 11/06/22 04:14 11/06/22 04:14 Micro: Microbiology 11/03/22 21:40 Urine Culture - Final Urine,Clean Catch A&P Assessment and plan (1) Acute hypoxemic respiratory failure: Patient presented initially to outside hospital with respiratory distress. Requirement of 12 L/min via nonrebreather. Transferred here to the ICU where he was found to have evidence of SVT versus A- fib. He was given adenosine and then cardioverted. Possible etiology of acute hypoxic respiratory failure would be CHF. Alternate differential is that of aspiration pneumonia given that patient was febrile upon admission. He has bilateral infiltrates on his chest x-ray. He had a witnessed aspiration episode on November 05, 2022. Per family patient has not known to have any aspiration events at the correction. He was in his usual state of health until about 6 days ago. He has additionally been having a waxing and waning mentation during the course of his admission here. At the present time patient is extremely lethargic. I am uncertain as to why patient would have an acute deterioration in his swallow function. We will go ahead and obtain a CT of his head to evaluate for any stroke leading up to swallowing issues. We will additionally obtain also CTA of his chest to evaluate for PE as a contributing cause for sudden hypoxia. His aspiration event may be related to worsening Parkinson's or dementia, however family reports acute deterioration which would be unexpected. Certainly he could have a primary infective or neurological event that would acutely deteriorate his dementia. He is noted to be audibly wheezing today. Continue with scheduled nebulization. Stat ABG CTA PE and stat CT head. Fever is currently resolved For his pneumonia, DC azithromycin. Continue meropenem. Check MRSA PCR from nares. Discontinue vancomycin if MRSA nares is negative. Check additionally respiratory viral panel. Possibly CHF may be contributing to his current picture. He received a dose of Lasix on November 05 at night. We will repeat 40 mg Lasix now. IV fluids have been discontinued. (2) Dyspnea: slight worsening this AM. likely 2/2 aspiration yday Qualifiers: Dyspnea type: shortness of breath Qualified Code(s): R06.02 - Shortness of breath (3) Septic shock: (4) Aspiration into respiratory tract: Qualifiers: Encounter type: initial encounter Qualified Code(s): T17.908A - Unspecified foreign body in respiratory tract, part unspecified causing other injury, initial encounter (5) Hospital acquired PNA: (6) Systolic heart failure: (7) CHF exacerbation: Echocardiogram is now completed. Shows normal LVEF of 60%. Grade 1 diastolic dysfunction. This is likely to be acute on chronic diastolic heart failure. We will use Lasix 40 mg IV x1 today, monitor electrolytes and repeat doses based on creatinine and electrolyte numbers. (8) AMS (altered mental status): Metabolic encephalopathy Check CT head Qualifiers: Altered mental status type: delirium Qualified Code(s): R41.0 - Disorientation, unspecified (9) Leukocytosis: resolved (10) Hypomagnesemia: 4mg IV x 1 on 11/03 (11) Hypophosphatasia: Resolved Plan Extensive goals of care discussion with patient's sister and [id number] who were at bedside currently. Patient is a DNR/DNI. His sister is power of real estate associate attorney. Patient is , has 1 kid and several grandchildren, however none none of his kids or grandkids are currently involved in his care. His sister is DPOA. Per patient's last known wishes he would not want to be mechanically ventilated. We will change his CODE STATUS to DNR/DNI in keeping with these wishes. Continue medical management for now. Should patient deteriorate, comfort care would be more compatible with his goals of care. At this time family is unsure if they would want a feeding tube if he continues to fail swallow trials. Attestations Medical Necessity Statement*: Worsening respiratory status, new labs as noted above in assessment and plan Coding Level of Care Code Acute Code for g Fwd Diagnoses Acute hypoxemic respiratory failure J96.01 Dyspnea R06.02 Dyspnea type: shortness of breath Septic shock A41.9; R65.21 Aspiration into respiratory tract T17.908A Encounter type: initial encounter Hospital acquired PNA J18.9; Y95 Systolic heart failure I50.20 CHF exacerbation I50.9 AMS (altered mental status) R41.0 Altered mental status type: delirium Leukocytosis D72.829 Hypomagnesemia E83.42 Hypophosphatasia E83.39
[2022-11-06 15:28] LABS: ABG PCO2 47.2 mmHg (35-45); ABG PH Result 7.41 (7.35-7.45); Arterial Blood Gas Hematocrit 42.9 % (42-52); Base Excess ABG 4.5 mmol/L (-2.0-2.0); Blood Gas Operator Identificat GD; Blood Gas Sample Site Brachial, right; Blood Gas Sample Type Arterial; Oxygen Device NC; PO2 ABG 89.2 mmHg (80.0-100.0)
--- NOTE | 2022-11-06 16:06 | PC.SOCIAL ---
IMM UPDATED Imm dated and initialed, copy given to patient and copy placed in chart.
[2022-11-06] MEDS: iohexol 350 mg/mL 500 mL Btl (per mL) IV (18:06)
[2022-11-06] MEDS: enoxaparin 40 mg/0.4 mL Syringe SUBCUT (18:37)
[2022-11-06 19:33] LABS: Adenovirus Not Detected (NOT DETECT); Chlamydia Pneumoniae Not Detected (NOT DETECT); Coronavirus 229E,HKU1,NL63,OC4 Not Detected (NOT DETECT); Human Metapneumovirus Not Detected (NOT DETECT); Human Rhinovirus/Enterovirus Detected (NOT DETECT); Influenza A Not Detected (NOT DETECT); Influenza A H1 Not Detected (NOT DETECT); Influenza A H1-2009 Not Detected (NOT DETECT); Influenza A H3 Not Detected (NOT DETECT); Influenza B Not Detected (NOT DETECT); Mycoplasma Pneumoniae Not Detected (NOT DETECT); Parainfluenza Virus Type 1 Not Detected (NOT DETECT); Parainfluenza Virus Type 2 Not Detected (NOT DETECT); Parainfluenza Virus Type 3 Not Detected (NOT DETECT); Parainfluenza Virus Type 4 Not Detected (NOT DETECT); Respiratory Syncytial Virus A Not Detected (NOT DETECT); Respiratory Syncytial Virus B Not Detected (NOT DETECT); SARS-COV-2 Not Detected (NOT DETECT)
[2022-11-07] VITALS (50 sets, daily range): BP systolic 102–156; BP diastolic 54–94; PULSE 73–116; RESP 19–31; TEMP 36.8–37.3; O2SAT 90–99; BMI 25.2
[2022-11-07] MEDS: dexmedetomidine 400 MCG in sodium chloride 0.9% (100 ml) 100 ML 26.99 MCG IV (00:59)
[2022-11-07] MEDS: ipratropium-albuterol 3 mL Neb INHALATION ×5 (03:00→20:07)
[2022-11-07] MEDS: meropenem 1,000 MG in sodium chloride 0.9% (plus) 50 ML 100 MG IV ×3 (03:52→19:50)
[2022-11-07 04:54] LABS: Basophils # 0.1 10^3/uL (0.0-0.1); Basophils % 0.7 %; Eosinophils # 0.1 10^3/uL (0.0-0.8); Eosinophils % 1.1 %; Hematocrit 49.5 % (42.0-52.0); Hemoglobin 15.1 g/dL (11.7-16.6); Lymphocytes # 0.9 10^3/uL (0.8-4.8); Lymphocytes % 10.7 %; Mean Corpuscular HGB Conc 30.5 g/dL (30.0-36.0); Mean Corpuscular Hemoglobin 30.2 pg (28.0-34.0); Mean Platelet Volume 9.8 fL (7.4-10.4); Monocytes # 0.7 10^3/uL (0.2-0.9); Neutrophils # 6.45 10^3/uL (1.8-7.7); Neutrophils % 78.3 %; Nucleated Red Blood Cells % 0 %; Platelet Count 211 10^3/cmm (130-400); Red Cell Distribution Width 13.6 % (12.1-15.1); White Blood Count 8.2 10^3/uL (4.0-10.0)
[2022-11-07 05:07] LABS: Alanine Aminotransferase 11 U/L (0-41); Albumin Level 2.8 g/dL (3.5-5.2); Alkaline Phosphatase 47 U/L (40-130); Anion Gap 16.9 (5-19); Aspartate Amino Transferase 13 U/L (0-40); Blood Urea Nitrogen 17 mg/dL (8-23); Calcium 8.9 mg/dL (8.5-10.5); Carbon Dioxide 27 mmol/L (22-29); Chloride 113 mmol/L (98-107); Globulin 3.6 g/dL (1.3-4.6); Glucose 81 mg/dL (65-115); Osmolality Calculated 317 mOsm/kg (285-295); Potassium 3.9 mmol/L (3.5-5.1); Sodium 153 mmol/L (136-145); Total Bilirubin 0.5 mg/dL (0.15-1.2); Total Protein 6.4 g/dL (6.6-8.7)
[2022-11-07 07:12] LABS: Glucose Point of Care 90 mg/dL (70-110)
[2022-11-07 09:43] LABS: Vancomycin Trough 15.9 ug/mL (10-15)
[2022-11-07] MEDS: vancomycin 1,250 MG/250 ML PIGGYBACK 200 MG IV (09:51)
[2022-11-07] MEDS: pantoprazole 40 mg SDV IVP (09:51)
--- NOTE | 2022-11-07 12:34 | XR_ITS ---
WS: [id number] EXAMINATION: XR chest 1V portable [id number] REASON FOR EXAM: port cxr now for ng placement COMPARISON: 11/05/2022 ORDER DATE: 11/07/2022 12:44 PM TECHNIQUE: A single, portable frontal chest x-ray was obtained. X-RAY FINDINGS: No change from previous except for placement of an enteric tube which extends to the distal gastric a ntrum in satisfactory position XR/XR chest 1V portable [id number] IMPRESSION: Enteric tube in satisfactory position for use..
--- NOTE | 2022-11-07 12:36 | PC.NURSE ---
1230 Placed 18 gu NG into right nare. Patient rober very well. Order for port cxr put in for placement.
--- NOTE | 2022-11-07 13:00 | P.PN_ITS ---
Subjective Subjective: Patient's oxygen requirement today is improving to 2lpm today. However NA increasing and patient remains lethargic today ,poorly responsive in conversation. Noted to be choking on attempting to swallow medication. RVP positive for rhino/enetrovirus. CTA negative for PE, shows B/L pneumonia Medications: Reviewed: Yes Vitals/I&O/Wt Last Vital Signs Temp 99.1 F 11/07/22 18:30 Pulse 117 H 11/08/22 00:00 Resp 32 H 11/08/22 00:00 BP 145/82 11/08/22 00:00 Pulse Ox 92 11/08/22 00:00 O2 Del Method 11/07/22 20:08 O2 Flow Rate 2 11/07/22 20:08 FiO2 60 11/05/22 06:00 11/07/22 11/07/22 11/08/22 14:59 22:59 06:59 Intake Total 560 / 560 24 / 584 Output Total 600 / 600 Balance 560 / 560 -576 / -16 Weight last 48 hrs Weight 86.636 kg Weight 88.451 kg Physical Exam Narrative: General: lethargic, [place] snot follow commands consistently HEENT: PERRLA, pupils bilaterally equal and reactive, pallors not present Chest: Wheezing to auscultation bilaterally CVS: S1-S2 regular, no murmurs, no tachycardia, no gallops, no rubs Abdomen: Soft, nontender, no organomegaly, bowel sounds present Neuro: No focal deficits, moves all extremities in bed Extremities: edema improving over LE Urinary Catheter Management: [place]: Cath Placed During This Visit: no Reason for Continuing Indwelling Catheter: Accurate Measurement of Urinary Output in Critically Ill Patients Data 11/07/22 03:55 11/07/22 03:55 Micro: Microbiology 11/06/22 14:17 MRSA Culture - Final Nose 11/06/22 20:36 Legionella Urinary Antigen - Final Urine,Voided Bacterial Antigens - Final A&P Assessment and plan (1) Acute hypoxemic respiratory failure: (2) Dyspnea: Qualifiers: Dyspnea type: shortness of breath Qualified Code(s): R06.02 - Shortness of breath (3) Septic shock: present on admit now resolved (4) Aspiration into respiratory tract: Qualifiers: Encounter type: initial encounter Qualified Code(s): T17.908A - Unspecified foreign body in respiratory tract, part unspecified causing other injury, initial encounter (5) Hospital acquired PNA: (6) Systolic heart failure: (7) CHF exacerbation: (8) AMS (altered mental status): Qualifiers: Altered mental status type: delirium Qualified Code(s): R41.0 - Disorientation, unspecified (9) Leukocytosis: (10) Hypomagnesemia: resolved (11) Hypophosphatasia: Resolved Plan Patient presented initially to outside hospital with respiratory distress. Requirement of 12 L/min via nonrebreather. Transferred here to the ICU where he was found to have evidence of SVT versus A- fib. He was given adenosine and then cardioverted. currently remains rate controlled Likely that acute hypoxic respiratory failure is multifactorial related to acute CHF from arrhythmia, now also CTA completed yesterday which shows B/L pneumonia and RVP positive for rhinovirus infection. No evidence of PE B/L pneumonia likely from bacterial infection on top of viral process vs aspiration, as witnessed here over the weekend. Per family patient has not known to [facility] He was in his usual state of health until about 6 days prior to admission. Patient's mentation likely metabolic enecephalopathy from acute infectious process. CT head negative for acute CVA. Now also developing hypernatremia with Na 153 which may be contributing. Fever is currently resolved For his pneumonia Continue meropenem. D/c vancomycin as negative MRSA PCR from nares. negative legionella and urine bacterial AG. Hold LAsix today given worsening Na, stable renal function for now Insert NG tube and start tube feeding. Additionally will start free water flushes for hyponatremia. Calculated free water deficit 4.8L. All updates discussed with family at bedside. Monitor for improvement over the next 36-48 hrs, if patient shows improvement with current line of treatment and has menaingful mentation, plan to proceed with repeat swallow eval and PEG if continues to fail. Attestations Medical Necessity Statement*: hypernatremia, NGT, starting tube feeding, free water flushes, monitor mentation , iv abx Coding Level of Care Code Acute Code for Chg Fwd High MDM includes number and complexity of problems actively addressed during encounter, amount and/or complexity of data reviewed/ordered and described risk of complication, morbidity or mortality of management as documented Diagnoses Acute hypoxemic respiratory failure J96.01 Dyspnea R06.02 Dyspnea type: shortness of breath Septic shock A41.9; R65.21 Aspiration into respiratory tract T17.908A Encounter type: initial encounter Hospital acquired PNA J18.9; Y95 Systolic heart failure I50.20 CHF exacerbation I50.9 AMS (altered mental status) R41.0 Altered mental status type: delirium Leukocytosis D72.829 Hypomagnesemia E83.42 Hypophosphatasia E83.39
--- NOTE | 2022-11-07 15:26 | PC.NURSE ---
2319 Patient's family left approx 15 minutes ago, and now has pulled his NG out. I replaced it, could verify placement by asculation, will order an port cxr for placement also.
--- NOTE | 2022-11-07 15:33 | XR_ITS ---
WS: [id number] Portable AP semiupright chest, 11/07/2022 1539 hours Clinical Data: port cxr for NG placement, pt pulled, now replaced Comparison: Portable chest, 11/07/2022, 1240 hours Findings: Nasogastric tube has been replaced. The tip of the nasogastric tube is probably within the fundus. The (port is probably at the gastroesophageal junction. The heart and lungs remain the same. XR/XR chest 1V portable [id number] Impression: Nasogastric tube now ends in fundus of the stomach.
[2022-11-07] MEDS: enoxaparin 40 mg/0.4 mL Syringe SUBCUT (17:59)
[2022-11-08] VITALS (57 sets, daily range): BP systolic 88–158; BP diastolic 63–96; PULSE 79–148; RESP 21–32; TEMP 37.4–38.2; O2SAT 76–94; BMI 25.0
[2022-11-08] MEDS: ipratropium-albuterol 3 mL Neb INHALATION ×6 (00:48→20:33)
[2022-11-08 01:09] LABS: Basophils # 0.1 10^3/uL (0.0-0.1); Basophils % 0.6 %; Eosinophils # 0.1 10^3/uL (0.0-0.8); Eosinophils % 0.6 %; Hematocrit 49.8 % (42.0-52.0); Hemoglobin 15.3 g/dL (11.7-16.6); Lymphocytes % 12.8 %; Mean Corpuscular HGB Conc 30.7 g/dL (30.0-36.0); Mean Corpuscular Hemoglobin 29.7 pg (28.0-34.0); Mean Corpuscular Volume 96.5 fl (80-94); Mean Platelet Volume 9.1 fL (7.4-10.4); Monocytes # 1.1 10^3/uL (0.2-0.9); Neutrophils # 5.56 10^3/uL (1.8-7.7); Neutrophils % 71.1 %; Nucleated Red Blood Cells % 0 %; Platelet Count 191 10^3/cmm (130-400); Red Blood Count 5.16 10^6/uL (4.1-5.3); Red Cell Distribution Width 13.6 % (12.1-15.1); White Blood Count 7.8 10^3/uL (4.0-10.0)
[2022-11-08 01:22] LABS: Alanine Aminotransferase 10 U/L (0-41); Albumin Level 2.9 g/dL (3.5-5.2); Alkaline Phosphatase 54 U/L (40-130); Anion Gap 14.7 (5-19); Aspartate Amino Transferase 13 U/L (0-40); Blood Urea Nitrogen 20 mg/dL (8-23); Calcium 9.2 mg/dL (8.5-10.5); Carbon Dioxide 28 mmol/L (22-29); Chloride 115 mmol/L (98-107); Globulin 3.3 g/dL (1.3-4.6); Glucose 110 mg/dL (65-115); Osmolality Calculated 321 mOsm/kg (285-295); Potassium 3.7 mmol/L (3.5-5.1); Sodium 154 mmol/L (136-145); Total Bilirubin 0.5 mg/dL (0.15-1.2); Total Protein 6.2 g/dL (6.6-8.7)
--- NOTE | 2022-11-08 02:02 | PC.NURSE ---
Free water flushes increased to 100ml Q4hr. See critical message to nurse
[2022-11-08] MEDS: meropenem 1,000 MG in sodium chloride 0.9% (plus) 50 ML 100 MG IV ×3 (04:07→20:32)
[2022-11-08 08:06] LABS: Glucose Point of Care 106 mg/dL (70-110)
--- NOTE | 2022-11-08 08:37 | PC.NUTR ---
Consult for TF received. Recommend Glucerna 1.2 to have goal rate of 50 cc/hr with flushes of 100 cc Q4H. Jevity 1.2 with same goal rate and flushes would also be appropriate. Details in RD assessment.
[2022-11-08] MEDS: sertraline 100 mg Tablet 200 MG PO (09:50)
[2022-11-08] MEDS: aspirin 81 mg Chew Tablet PO (09:50)
[2022-11-08] MEDS: amiodarone 200 mg Tablet 400 MG PO ×2 (09:50→18:00)
[2022-11-08] MEDS: divalproex DR 250 mg Tablet PO ×2 (09:50→18:00)
[2022-11-08] MEDS: pantoprazole 40 mg SDV IVP (09:51)
[2022-11-08] MEDS: FUROsemide 40 mg Tablet PO (09:51)
--- NOTE | 2022-11-08 10:52 | PC.CHAP ---
Pastoral Care Encounter/Spiritual Assessment Type of Contact [] Declined creel selector visit [] Patient/Family/Request visit [] Outpatient visit [] Follow-up visit [] Physician referral [] Code/Alert [x] Routine visit [] Staff referral [] Actively dying [x] Patient sleeping [] Family support [] [] Out of room [] Palliative care [] [] Receiving care in room [] Pre-surgical visit [] Trauma [] Long length of stay [x] ICU visit [] Other: Relational/Emotional Strength [] Patient feels connected with others/family/visitors/staff [] Distress [] Loneliness/isolation [] Abandonment Spirituality of Patient [] Person of Nidia [] Attends Mosque of their Nidia [] Believes in Prayer [] Reads Bible or Uatsdin materials [] There are Spiritual issues to be addressed 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 Dealer Interventions [x] Prayer [] Active listening [] Non-anxious presence [] Spiritual/emotional support [] Crisis/trauma care [] Spiritual counseling [] Bereavement support [] Provided bereavement packet [] Provided Bible/devotional materials [] Provided toy/stuffed animal, coloring book to patient or family member [] Provided Communion [] Anointing/[place] [] Salvation [x] Completed spiritual assessment [] Other: Impact on Illness or Injury [] Angry [] Fearful [] Anxious [] Often cries [] Exhaustion [] Unable to work [] Unable to attend jew [] Unable to walk/stand [] Unable to read [] Unable to drive [] Unable to eat/drink [] Unable to sleep [] Unable to be with family [] Patient intubated [] Other: Summary Time spent with patient
--- NOTE | 2022-11-08 13:46 | ECG_ITS ---
[facility] Test Date: 2022-11-08 Pat Name: Reilly Patrick Department: Room: ICU10 Gender: Male Director Title: : 1945 Requested By: Shama Marte Order Number: [id number] Jordin MD: Felix Espinoza M.D. Measurements Intervals Sutter Rate: 125 P: 0 MN: 0 QRS: -85 QRSD: 142 T: 35 QT: 330 QTc: 476 Interpretive Statements ATRIAL FIBRILLATION WITH RAPID VENTRICULAR RESPONSE RIGHT BUNDLE BRANCH BLOCK [120+ ms QRS DURATION, UPRIGHT V1, 40+ ms S IN I/aVL/V4/V5/V6] LEFT ANTERIOR FASCICULAR BLOCK [QRS AXIS <= -45, QR IN I, RS IN II] ST DEPRESSION, CONSIDER SUBENDOCARDIAL INJURY [0.1+ mV ST DEPRESSION] Compared to ECG 11/03/2022 18:22:52 ST (T wave) deviation now present Sinus tachycardia no longer present First degree AV block no longer present Electronically Signed On 11-08-2022 16:31:52 CDT by Felix Espinoza M.D. [email or web address]
[2022-11-08] MEDS: metoprolol tartrate 1 mg/1 mL SDV 5 mL 5 MG IVP (13:59)
--- NOTE | 2022-11-08 15:12 | PC.SOCIAL ---
IMM IMM not updated with family. Pt is not expected to d/c in the next 24-48hrs. IMM was left at bedside for family to review. Initialed, dated, & timed copy in chart.
--- NOTE | 2022-11-08 17:47 | PM.PN ---
Subjective Subjective: Continues to be on 2 L/min supplemental O2. No acute events overnight. Heart rate noted to be tachycardic today, A-fib with 120 to 140 bpm. Continues to be somnolent. Attempting to cut back on Precedex today. Medications: Reviewed: Yes Vitals/I&O/Wt Last Vital Signs Temp 99.4 F 11/08/22 12:49 Pulse 121 H 11/08/22 16:19 Resp 28 H 11/08/22 16:15 BP 121/82 11/08/22 16:00 Pulse Ox 92 11/08/22 16:15 O2 Del Method 11/08/22 16:15 O2 Flow Rate 2 11/08/22 16:15 FiO2 60 11/05/22 06:00 11/08/22 11/08/22 11/08/22 06:59 14:59 22:59 Intake Total 310 / 944 332.490 / 332.490 Output Total 500 / 1100 1300 / 1300 Balance -190 / -156 -967.510 / -967.510 Weight last 48 hrs Weight 85.956 kg Weight 86.636 kg Physical Exam Narrative: General: No acute distress, AO x1 HEENT: PERRLA, pupils bilaterally equal and reactive, pallors not present Chest: bilateral conducted breath sounds CVS: S1-S2 regular, no murmurs, no tachycardia, no gallops, no rubs Abdomen: Soft, nontender, no organomegaly, bowel sounds present Neuro: Lethargic, moves all extremities in bed Urinary Catheter Management: Pickering: Cath Placed During This Visit: no Reason for Continuing Indwelling Catheter: Accurate Measurement of Urinary Output in Critically Ill Patients Data 11/08/22 01:00 11/08/22 01:00 Micro: Microbiology 11/06/22 14:17 MRSA Culture - Final Nose A&P Assessment and plan (1) Acute hypoxemic respiratory failure: (2) Dyspnea: Qualifiers: Dyspnea type: shortness of breath Qualified Code(s): R06.02 - Shortness of breath (3) Septic shock: present on admit now resolved (4) Aspiration into respiratory tract: Qualifiers: Encounter type: initial encounter Qualified Code(s): T17.908A - Unspecified foreign body in respiratory tract, part unspecified causing other injury, initial encounter (5) Hospital acquired PNA: (6) Systolic heart failure: (7) CHF exacerbation: (8) AMS (altered mental status): Qualifiers: Altered mental status type: delirium Qualified Code(s): R41.0 - Disorientation, unspecified (9) Leukocytosis: (10) Hypomagnesemia: resolved (11) Hypophosphatasia: Resolved Plan Patient presented initially to outside hospital with respiratory distress. Requirement of 12 L/min via nonrebreather. Transferred here to the ICU where he was found to have evidence of SVT versus A-fib. He was given adenosine and then cardioverted. He is currently on amiodarone 400 mg p.o. twice daily. Today noted to be in A-fib with heart rate ranging between 120 to 140 bpm. We will continue the amiodarone but also start him on metoprolol 25 mg p.o. twice daily and monitor heart rate closely. Likely that acute hypoxic respiratory failure is multifactorial related to acute CHF from arrhythmia, B/L pneumonia and RVP positive for rhinovirus/enterovirus infection. No evidence of PE. B/L pneumonia likely from bacterial infection on top of viral process vs aspiration, as witnessed here over the weekend. Per family patient has not known to have any aspiration events at the long term. He was in his usual state of health until about 6 days prior to admission. Patient's mentation likely metabolic enecephalopathy from acute infectious process. CT head negative for acute CVA. Now also developing hypernatremia with Na 153 which may be contributing. Sodium has trended up now to 154, free water deficit calculated at greater than 5 L. He is on free water flushes 100 cc every 4 hours via NG tube. We will start him on D5 at 75 cc an hour. Accu-Cheks every 6 hours For his pneumonia Continue meropenem. D/ash vancomycin as negative MRSA PCR from nares. negative legionella and urine bacterial AG. low grade efevr toay, check blood cx continue tube feeding diet wean down precedex to get patient to be more awake. All updates discussed with family at bedside. Monitor for improvement over the next 36-48 hrs, if patient shows improvement with current line of treatment and has menaingful mentation, plan to proceed with repeat swallow eval and PEG if continues to fail. Attestations Medical Necessity Statement*: iv abx, tube feeding, hypernatreia, IV fluids Coding Level of Care Code Critical Care >/= 30 minutes Diagnoses Acute hypoxemic respiratory failure J96.01 Dyspnea R06.02 Dyspnea type: shortness of breath Septic shock A41.9; R65.21 Aspiration into respiratory tract T17.908A Encounter type: initial encounter Hospital acquired PNA J18.9; Y95 Systolic heart failure I50.20 CHF exacerbation I50.9 AMS (altered mental status) R41.0 Altered mental status type: delirium Leukocytosis D72.829 Hypomagnesemia E83.42 Hypophosphatasia E83.39
[2022-11-08] MEDS: enoxaparin 40 mg/0.4 mL Syringe SUBCUT (18:00)
[2022-11-08] MEDS: dextrose 5% 1,000 ML 75 ML IV (20:32)
[2022-11-08] MEDS: metoprolol tartrate 25 mg Tablet PO (20:33)
[2022-11-09] VITALS (54 sets, daily range): BP systolic 106–148; BP diastolic 71–97; PULSE 91–155; RESP 4–30; TEMP 36.9–38.4; O2SAT 83–96
[2022-11-09] MEDS: acetaminophen 325 mg Tablet 650 MG PO (00:16)
[2022-11-09] MEDS: ipratropium-albuterol 3 mL Neb INHALATION ×3 (00:50→11:23)
[2022-11-09 01:14] LABS: Basophils # 0.1 10^3/uL (0.0-0.1); Basophils % 0.7 %; Eosinophils # 0.1 10^3/uL (0.0-0.8); Eosinophils % 1.1 %; Hemoglobin 15.7 g/dL (11.7-16.6); Lymphocytes # 1.2 10^3/uL (0.8-4.8); Lymphocytes % 14.9 %; Mean Corpuscular HGB Conc 30.8 g/dL (30.0-36.0); Mean Corpuscular Hemoglobin 29.1 pg (28.0-34.0); Mean Corpuscular Volume 94.6 fl (80-94); Mean Platelet Volume 9.4 fL (7.4-10.4); Monocytes # 1.3 10^3/uL (0.2-0.9); Monocytes % 16.2 %; Neutrophils # 5.27 10^3/uL (1.8-7.7); Neutrophils % 65.7 %; Nucleated Red Blood Cells % 0 %; Platelet Count 234 10^3/cmm (130-400); Red Blood Count 5.39 10^6/uL (4.1-5.3); Red Cell Distribution Width 13.4 % (12.1-15.1)
[2022-11-09 01:42] LABS: Alanine Aminotransferase 16 U/L (0-41); Alkaline Phosphatase 60 U/L (40-130); Anion Gap 13.5 (5-19); Aspartate Amino Transferase 21 U/L (0-40); Blood Urea Nitrogen 21 mg/dL (8-23); Calcium 9.1 mg/dL (8.5-10.5); Carbon Dioxide 31 mmol/L (22-29); Chloride 115 mmol/L (98-107); Globulin 3.3 g/dL (1.3-4.6); Glucose 133 mg/dL (65-115); Magnesium 1.7 mg/dL (1.7-2.3); Osmolality Calculated 327 mOsm/kg (285-295); Potassium 3.5 mmol/L (3.5-5.1); Sodium 156 mmol/L (136-145); Total Bilirubin 0.5 mg/dL (0.15-1.2); Total Protein 6.3 g/dL (6.6-8.7)
[2022-11-09] MEDS: meropenem 1,000 MG in sodium chloride 0.9% (plus) 50 ML 100 MG IV ×3 (04:17→20:42)
[2022-11-09 07:44] LABS: Glucose Point of Care 117 mg/dL (70-110)
[2022-11-09] MEDS: pantoprazole 40 mg SDV IVP (08:30)
[2022-11-09] MEDS: divalproex DR 250 mg Tablet PO ×2 (08:31→17:26)
[2022-11-09] MEDS: sertraline 100 mg Tablet 200 MG PO (08:31)
[2022-11-09] MEDS: aspirin 81 mg Chew Tablet PO (08:31)
[2022-11-09] MEDS: amiodarone 200 mg Tablet 400 MG PO ×2 (08:31→17:26)
[2022-11-09] MEDS: FUROsemide 40 mg Tablet PO (08:31)
[2022-11-09] MEDS: dextrose 5% 1,000 ML 75 ML IV ×2 (08:32→20:42)
[2022-11-09] MEDS: metoprolol tartrate 25 mg Tablet PO (08:32)
[2022-11-09] MEDS: metoprolol tartrate 1 mg/1 mL SDV 5 mL 5 MG IVP (15:13)
--- NOTE | 2022-11-09 15:51 | P.PN_ITS ---
Subjective Subjective: Precedex has now been weaned off. Patient is much more alert and awake today. He is able to correctly state his name, date of , the fact that he is in the hospital. He is able to read a few simple sentences from the book in front of him. It is hard to understand him as his speech is slightly slurred however his sister helps with translation and can understand most of his speech. Tachycardic with heart rate ranging 1 20-1 30. Tmax 101 Fahrenheit overnight. Medications: Reviewed: Yes Vitals/I&O/Wt Last Vital Signs Temp 99.9 F H 11/09/22 14:30 Pulse 115 H 11/09/22 14:30 Resp 27 H 11/09/22 14:30 BP 108/78 11/09/22 14:30 Pulse Ox 91 11/09/22 14:30 O2 Del Method 11/09/22 14:30 O2 Flow Rate 2 11/09/22 14:30 FiO2 60 11/05/22 06:00 11/09/22 11/09/22 11/09/22 06:59 14:59 22:59 Intake Total 518 / 3244.710 1010 / 1010 Output Total 250 / 1850 700 / 700 Balance 268 / 1394.710 310 / 310 Weight last 48 hrs Weight 86.455 kg Weight 85.956 kg Physical Exam Narrative: General: No acute distress, AO x3, more work awake and alert HEENT: PERRLA, pupils bilaterally equal and reactive, pallors not present Chest: bilateral conducted breath sounds, gurgling sounds from upper airway. CVS: S1-S2 regular, no murmurs, no tachycardia, no gallops, no rubs Abdomen: Soft, nontender, no organomegaly, bowel sounds present Neuro: More awake and alert today. Urinary Catheter Management: Pickering: Cath Placed During This Visit: no Reason for Continuing Indwelling Catheter: Accurate Measurement of Urinary Output in Critically Ill Patients Data 11/09/22 00:49 11/09/22 00:49 Micro: Microbiology 11/09/22 00:51 Blood Culture - Preliminary Blood SPECIMEN COLLECTED 11/09/22 00:49 Blood Culture - Preliminary Blood SPECIMEN COLLECTED 11/03/22 19:00 Blood Culture - Final Blood NO GROWTH AFTER 5 DAYS 11/03/22 18:55 Blood Culture - Final Blood NO GROWTH AFTER 5 DAYS A&P Assessment and plan (1) Acute hypoxemic respiratory failure: (2) Dyspnea: Qualifiers: Dyspnea type: shortness of breath Qualified Code(s): R06.02 - Shortness of breath (3) Septic shock: present on admit now resolved (4) Aspiration into respiratory tract: Qualifiers: Encounter type: initial encounter Qualified Code(s): T17.908A - Unspecified foreign body in respiratory tract, part unspecified causing other injury, initial encounter (5) Systolic heart failure: (6) CHF exacerbation: (7) AMS (altered mental status): Qualifiers: Altered mental status type: delirium Qualified Code(s): R41.0 - Disorientation, unspecified (8) Leukocytosis: (9) Hypomagnesemia: resolved (10) Hypophosphatasia: Resolved Plan Patient presented initially to outside hospital with respiratory distress. Requirement of 12 L/min via nonrebreather. Transferred here to the ICU on November 03 where he was found to have evidence of SVT versus A-fib. He was given adenosine and then cardioverted. He is currently on amiodarone 400 mg p.o. twice daily. Heart rate continues to be uncontrolled, ranging 120 to 130 bpm today. Metoprolol increased to 50 twice daily in addition to the amiodarone. Additionally added 5 mg every 4 hours. Likely that acute hypoxic respiratory failure is multifactorial related to acute CHF from arrhythmia, B/L pneumonia and RVP positive for rhinovirus/enterovirus infection. No evidence of PE on CTA performed on November 06, 2022. B/L pneumonia likely from bacterial infection on top of viral process vs aspiration, as witnessed here over the weekend. Per family patient has not known to have any [facility]. He was in his usual state of health until about 6 days prior to admission. His new dysphagia may be related to reduced mentation, lethargy from metabolic encephalopathy. Stroke was ruled out via negative CT head. In spite of being more alert and awake today patient continues to have oropharyngeal dysphagia with aspiration noted even with minimal sips of water. We will check CT of the neck to evaluate for any mechanical obstruction impeding his swallowing. Continues to have persisting fever, last night as high as 101.1 Fahrenheit. He is currently appropriately covered with meropenem, sputum culture has been ordered but yet to be collected. Urine Legionella and bacterial antigen panel is negative. MRSA nares is negative. Persisting fever may be related to enterovirus infection. He did have 1 episode of loose bowel movement today. Will check CT of the abdomen and pelvis to rule out any other occult sources of infection within the abdomen to explain the persisting fever. We will additionally also check lower extremity Doppler to evaluate for DVT as a cause of the fever. Blood culture has been taken and pending Should fevers continue to persist over the next 24 hours, will likely broaden antibiotic coverage empirically. Sodium continues to trend up to 156 today. Increase free water flushes to 200 every 4 hours. Continue D5. Cheetah monitoring was done last evening which showed patient is fluid responsive. SVV of 21. All updates discussed with family at bedside. We will reassess his swallow function tomorrow, if continues to fail swallow eval plan for a PEG tube. We currently do not have surgery services available here until November 14, 2022. I have offered to transfer the patient where PEG tube may be placed versus give the family the option of continuing tube feedings until we have surgery services on the . Of the 2 options family prefers to wait here until the and have PEG placed at the hospital. Attestations Medical Necessity Statement*: Continued need of IV antibiotics, heart rate rate better needs to be controlled, tube feedings to continue, persisting fevers needing further evaluation, CT neck to evaluate for dysphagia. Coding Level of Care Code Acute Code for Chg Fwd Diagnoses Acute hypoxemic respiratory failure J96.01 Dyspnea R06.02 Dyspnea type: shortness of breath Septic shock A41.9; R65.21 Aspiration into respiratory tract T17.908A Encounter type: initial encounter Systolic heart failure I50.20 CHF exacerbation I50.9 AMS (altered mental status) R41.0 Altered mental status type: delirium Leukocytosis D72.829 Hypomagnesemia E83.42 Hypophosphatasia E83.39
--- NOTE | 2022-11-09 15:54 | CTR_ITS ---
PROCEDURE INFORMATION: Exam: CT Abdomen And Pelvis With Contrast Exam date and time: 11/10/2022 1:09 AM Age: 77 years old Clinical indication: Patient HX: Persistent fever; Additional info: Evaluate for intraabdominal collection, persisting fever x 1 week, dysphagia, evaluate for TECHNIQUE: Imaging protocol: Computed tomography of the abdomen and pelvis with contrast. Radiation optimization: All CT scans at this facility use at least one of these dose optimization techniques: automated exposure control; mA and/or kV adjustment per patient size (includes targeted exams where dose is matched to clinical indication); or iterative reconstruction. Contrast material: OMNI 350; Contrast volume: 75 ml; Contrast route: INTRAVENOUS (IV); REPORTING DATA: Count of CT and Cardiac NM exams in prior 12 months: This patient has received 3 known CTs and 0 known cardiac nuclear medicine studies in the 12 months prior to the current study. COMPARISON: CT angio chest PE protcl [id number] 11/06/2022 5:50 PM RADIATION DOSE METRICS: Total DLP (mGy-cm): 727.23 FINDINGS: Tubes, catheters and devices: Nasogastric tube in place. There is a Pickering catheter with the balloon present in the urinary bladder. Lungs: Bibasilar consolidations concerning for pneumonia. Liver: There are multiple hepatic cysts, largest of which measures 2.7 cm. Gallbladder and bile ducts: There is cholelithiasis without wall thickening or pericholecystic fluid. No bile duct stone. Pancreas: Normal. No ductal dilation. Spleen: There are multiple calcified splenic granulomata . Adrenal glands: Normal. No mass. Kidneys and ureters: 3 mm nonobstructing right renal pelvis stone. Stomach and bowel: Unremarkable. No obstruction. No mucosal thickening. Appendix: No evidence of appendicitis. Intraperitoneal space: Unremarkable. No free air. No significant fluid collection. Vasculature: Unremarkable. No abdominal aortic aneurysm. Lymph nodes: Unremarkable. No enlarged lymph nodes. Urinary bladder: Unremarkable as visualized. Reproductive: Unremarkable as visualized. Bones/joints: Unremarkable. No acute fracture. Soft tissues: Unremarkable. CT/CT abdomen pelvis w con* [id number] IMPRESSION: 1. Cholelithiasis without cholecystitis . 2. Bibasilar consolidations concerning for pneumonia. 3. 3 mm nonobstructing right renal pelvis stone.
--- NOTE | 2022-11-09 15:54 | CTR_ITS ---
PROCEDURE INFORMATION: Exam: CT Neck With Contrast Exam date and time: 11/10/2022 1:15 AM Age: 77 years old Clinical indication: Dysphagia / difficulty swallowing; Patient HX: Dysphagia. Ng in place. ; Additional info: New onset dysphagia, evaluate for upper airway obstruction TECHNIQUE: Imaging protocol: Computed tomography of the neck with contrast. Radiation optimization: All CT scans at this facility use at least one of these dose optimization techniques: automated exposure control; mA and/or kV adjustment per patient size (includes targeted exams where dose is matched to clinical indication); or iterative reconstruction. Contrast material: OMNI 350; Contrast volume: 75 ml; Contrast route: INTRAVENOUS (IV); REPORTING DATA: Count of CT and Cardiac NM exams in prior 12 months: This patient has received 3 known CTs and 0 known cardiac nuclear medicine studies in the 12 months prior to the current study. COMPARISON: CT head wo con* [id number] 11/06/2022 5:46 PM RADIATION DOSE METRICS: Total DLP (mGy-cm): 242.81 FINDINGS: Tubes, catheters and devices: NGT present. NGT loops in the hypopharynx. See series 7, image 57. Paranasal sinuses: Mild diffuse sinus mucosal thickening. Pharynx: No focal mucosal space suspicious lesion is noted. Larynx: Unremarkable. Epiglottis is unremarkable. Prevertebral and retropharyngeal spaces: Unremarkable. Salivary glands: Within normal limits. Glands are normal in size. Thyroid: The thyroid is not enlarged. No suspicious nodules are apparent. Lymph nodes: No bulky lymphadenopathy identified. Trachea: Visualized trachea is unremarkable. Lungs: Bilateral upper lung hazy patchy airspace disease. Pleural spaces: Very small right pleural effusion. Bones/joints: Mild spine DJD. Soft tissues: Unremarkable. No significant soft tissue swelling. CT/CT neck w con* [id number] IMPRESSION: 1. NGT present, which loops/coils in the hypopharynx. The tip is present below the topogram, at least in the lower esophagus. Advise correlation. 2. Hazy upper lung infiltrates/pneumonia. 3. Very small right pleural effusion. 4. No suspicious neck mass or bulky cervical lymphadenopathy visualized. 5. Mild sinus disease.
--- NOTE | 2022-11-09 15:58 | USR_ITS ---
PROCEDURE INFORMATION: Exam: US Duplex Lower Extremity Veins, Bilateral Exam date and time: 11/09/2022 4:15 PM Age: 77 years old Clinical indication: Swelling (edema) of limb; Lower extremity, bilateral; Additional info: Evalaute for dvt TECHNIQUE: Imaging protocol: Real-time duplex ultrasound of the bilateral extremities with 2-D hagan scale, color Doppler flow and spectral waveform analysis including responses to compression and other maneuvers (when performed) with image documentation. Complete exam focused on the lower extremity veins. COMPARISON: No relevant prior studies available. FINDINGS: Right deep veins: DVT involving the common femoral, superficial femoral, popliteal, and peroneal veins of the right leg, appearing predominant nonoccluding though with partial occluding component. This is associated with noncompressibility to partial compressibility. Right superficial veins: Saphenofemoral junction is patent without thrombus. Left deep veins: DVT involving the common femoral, superficial femoral, popliteal, peroneal, and posterior tibial veins of the left leg, appearing predominant nonoccluding though with partial occluding component. This appears predominantly occluding within the left popliteal, peroneal, and posterior tibial veins. This is associated with noncompressibility to partial compressibility. Left superficial veins: Saphenofemoral junction is patent without thrombus. Soft tissues: Unremarkable. US/[place] [id number] IMPRESSION: Positive for deep vein thrombosis bilaterally, as noted above.
[2022-11-09] MEDS: ipratropium 0.5 mg/2.5 mL Neb INHALATION (16:00)
[2022-11-09] MEDS: levalbuterol 0.63 mg/3 mL Neb INHALATION ×3 (16:00→23:50)
--- NOTE | 2022-11-09 16:10 | XR_ITS ---
WS: [id number] EXAMINATION: XR chest 1V portable [id number] REASON FOR EXAM: follow up lung infiltrates COMPARISON: None available. ORDER DATE: 11/09/2022 4:20 PM TECHNIQUE: A single, portable frontal chest x-ray was obtained. X-RAY FINDINGS: Patchy areas of peripheral airspace opacity in the lung bases and right upper lobe are again present. Since the previous study. The enteric tube has been advanced with the distal tip no longer included the field of view but well below the diaphragm and therefore likely and/or below the gastric fundus.. XR/XR chest 1V portable [id number] IMPRESSION: Minimal change compared with the previous except for the distal repositioning of the enteric tube.
[2022-11-09 17:21] LABS: Glucose Point of Care 117 mg/dL (70-110)
[2022-11-09] MEDS: glycopyrrolate 0.2 mg/mL SDV 2 mL 0.1 MG IM (17:27)
[2022-11-09] MEDS: enoxaparin 40 mg/0.4 mL Syringe SUBCUT (17:34)
[2022-11-09] MEDS: enoxaparin 100 mg/mL Syringe 90 MG SUBCUT (18:15)
[2022-11-09] MEDS: dilTIAZem 5 mg/mL SDV 5 mL 10 MG IVP (18:15)
[2022-11-09] MEDS: albumin 12.5 GM/250 ML VIAL IV (18:36)
--- NOTE | 2022-11-09 18:56 | PC.NURSE ---
Patient resting in bed sitting up more today, AAOx2 and smiling today. Has had a couple BM throughout shift. Family at bedside during shift. Elevated HR during shift with physician notified and orders placed throughout the day. Patient turned frequently today with legs repositioned as well. Room clean and clutter free with call light within reach and frequently rounding on patient.
[2022-11-09] MEDS: metoprolol tartrate 50 mg Tablet PO (20:42)
[2022-11-10] VITALS (34 sets, daily range): BP systolic 115–142; BP diastolic 50–92; PULSE 70–101; RESP 16–28; TEMP 36.6–37.5; O2SAT 89–96; BMI 27.0
[2022-11-10] MEDS: acetaminophen 325 mg Tablet 650 MG PO (00:44)
[2022-11-10] MEDS: iohexol 350 mg/mL 500 mL Btl (per mL) IV (01:25)
[2022-11-10] MEDS: levalbuterol 0.63 mg/3 mL Neb INHALATION ×5 (03:11→21:41)
[2022-11-10] MEDS: meropenem 1,000 MG in sodium chloride 0.9% (plus) 50 ML 100 MG IV ×2 (03:31→11:51)
[2022-11-10] MEDS: enoxaparin 100 mg/mL Syringe 90 MG SUBCUT ×2 (05:27→18:05)
[2022-11-10 06:33] LABS: Basophils # 0.1 10^3/uL (0.0-0.1); Basophils % 0.7 %; Eosinophils # 0.5 10^3/uL (0.0-0.8); Hemoglobin 13.8 g/dL (11.7-16.6); Lymphocytes # 1.8 10^3/uL (0.8-4.8); Mean Corpuscular HGB Conc 31.4 g/dL (30.0-36.0); Mean Corpuscular Hemoglobin 29.9 pg (28.0-34.0); Mean Corpuscular Volume 95.4 fl (80-94); Mean Platelet Volume 9.6 fL (7.4-10.4); Monocytes # 0.9 10^3/uL (0.2-0.9); Monocytes % 12.1 %; Neutrophils # 4.27 10^3/uL (1.8-7.7); Nucleated Red Blood Cells % 0 %; Platelet Count 200 10^3/cmm (130-400); Red Blood Count 4.61 10^6/uL (4.1-5.3); Red Cell Distribution Width 13.8 % (12.1-15.1); White Blood Count 7.6 10^3/uL (4.0-10.0)
[2022-11-10 06:53] LABS: Alanine Aminotransferase 14 U/L (0-41); Albumin Level 2.8 g/dL (3.5-5.2); Alkaline Phosphatase 51 U/L (40-130); Aspartate Amino Transferase 15 U/L (0-40); Blood Urea Nitrogen 16 mg/dL (8-23); Calcium 8.6 mg/dL (8.5-10.5); Carbon Dioxide 34 mmol/L (22-29); Chloride 110 mmol/L (98-107); Globulin 2.8 g/dL (1.3-4.6); Glucose 114 mg/dL (65-115); Osmolality Calculated 314 mOsm/kg (285-295); Sodium 151 mmol/L (136-145); Total Bilirubin 0.5 mg/dL (0.15-1.2); Total Protein 5.6 g/dL (6.6-8.7)
[2022-11-10 07:15] LABS: Slide Review Slide Review Perform
[2022-11-10] MEDS: aspirin 81 mg Chew Tablet PO (09:00)
[2022-11-10] MEDS: metoprolol tartrate 50 mg Tablet PO (09:00)
[2022-11-10] MEDS: FUROsemide 40 mg Tablet PO (09:00)
[2022-11-10] MEDS: amiodarone 200 mg Tablet 400 MG PO ×2 (09:01→18:05)
[2022-11-10] MEDS: divalproex DR 250 mg Tablet PO ×2 (09:01→18:05)
[2022-11-10] MEDS: sertraline 100 mg Tablet 200 MG PO (09:01)
[2022-11-10] MEDS: pantoprazole 40 mg SDV IVP (09:01)
[2022-11-10] MEDS: potassium chloride ER 20 mEq Tablet 60 MEQ NG-TUBE (10:46)
[2022-11-10] MEDS: dextrose 5% 1,000 ML 75 ML IV (10:46)
[2022-11-10 12:05] LABS: Glucose Point of Care 101 mg/dL (70-110)
--- NOTE | 2022-11-10 12:15 | PC.NURSE ---
Upon entering room noted NG out of nose lying in bed next to patient. Pt incontinent of BM also. Courtney-care provided. Dr Marte, on unit, notified of NG out. Decision made to wait for speech eval and/or speak with family prior to re insertion. Tube feeding off.
--- NOTE | 2022-11-10 15:44 | PC.NURSE ---
Yumiko Morillo called back for report. Report given. All questions answered.
--- NOTE | 2022-11-10 15:50 | PC.NURSE ---
Pt trasnferred to 277-2. All belongings with pt, including dentures. Family, Sanchez Aragon and with pt.
--- NOTE | 2022-11-10 16:59 | PC.SOCIAL ---
IMM Updated Updated pt's family on IMM. No questions voiced. Provided pt a copy. Initialed, dated, & timed copy in chart.
[2022-11-10 17:06] LABS: Glucose Point of Care 125 mg/dL (70-110)
--- NOTE | 2022-11-10 17:19 | PC.NURSE ---
Patients 17:00 accucheck is 125
[2022-11-10] MEDS: amoxicillin-clav 875-125 mg Tablet 1 TAB PO (18:05)
[2022-11-10] MEDS: dilTIAZem ER (12HR) 60 mg Capsule 120 MG PO (18:05)
--- NOTE | 2022-11-10 19:09 | PC.SLP ---
PUMP TECHNICIAN will follow up the patient tomorrow, if indicated. The patient had just eaten prior to PUMP TECHNICIAN arrival in his room. He did not want to try any more oral intake.
--- NOTE | 2022-11-10 20:09 | PC.OT ---
OT Eval Held - Evaluation held on this day secondary to patient's levels being inappropriate for tx at this time.
--- NOTE | 2022-11-10 22:21 | PM.PN ---
Subjective Subjective: na improving today to 151, LE duplex revealed B/L DVT , patient awake, but disoriented, extremely deconditioned. still continues to have excessive secretions. Patient pulled out his NGT. started on cardizem infusion last evening due to uncontrolled HR Medications: Reviewed: Yes Vitals/I&O/Wt Last Vital Signs Temp 98.2 F 11/10/22 21:00 Pulse 79 11/10/22 21:42 Resp 20 H 11/10/22 21:42 BP 133/76 11/10/22 21:00 Pulse Ox 95 11/10/22 21:42 O2 Del Method 11/10/22 21:42 O2 Flow Rate 5 11/10/22 21:42 FiO2 60 11/05/22 06:00 11/10/22 11/10/22 11/10/22 06:59 14:59 22:59 Intake Total 223.166 / 3841.874 1574.667 / 1574.667 996 / 2570.667 Output Total 250 / 1300 900 / 900 Balance -26.834 / 2541.874 674.667 / 674.667 996 / 1670.667 Weight last 48 hrs Weight 90.492 kg Weight 86.2 kg Weight 86.455 kg Physical Exam Narrative: General:restless, oriented x 1-2 HEENT: PERRLA, pupils bilaterally equal and reactive, pallors not present Chest: Normal vesicular breath sounds, no added sounds, equal good air entry bilaterally CVS: S1-S2 regular, no murmurs, no tachycardia, no gallops, no rubs Abdomen: Soft, nontender, no organomegaly, bowel sounds present Neuro: No focal deficits, no facial deformity, AO x3, power 5/5 in all limbs Extremities: LE edema Urinary Catheter Management: [place]: Cath Placed During This Visit: no Reason for Continuing Indwelling Catheter: Accurate Measurement of Urinary Output in Critically Ill Patients Data 11/10/22 06:24 11/10/22 06:24 Micro: Microbiology 11/09/22 00:51 Blood Culture - Preliminary Blood NEGATIVE TO DATE 11/09/22 00:49 Blood Culture - Preliminary Blood NEGATIVE TO DATE A&P Assessment and plan (1) Acute hypoxemic respiratory failure: (2) Dyspnea: Qualifiers: Dyspnea type: shortness of breath Qualified Code(s): R06.02 - Shortness of breath (3) Septic shock: present on admit now resolved (4) Aspiration into respiratory tract: Qualifiers: Encounter type: initial encounter Qualified Code(s): T17.908A - Unspecified foreign body in respiratory tract, part unspecified causing other injury, initial encounter (5) Systolic heart failure: (6) CHF exacerbation: (7) AMS (altered mental status): Qualifiers: Altered mental status type: delirium Qualified Code(s): R41.0 - Disorientation, unspecified (8) Leukocytosis: (9) Hypomagnesemia: resolved (10) Hypophosphatasia: Resolved Plan Patient presented initially to outside hospital with respiratory distress. Requirement of 12 L/min via nonrebreather. Transferred here to the ICU on November 03 where he was found to have evidence of SVT versus A-fib. He was given adenosine and then cardioverted. He is currently on amiodarone 400 mg p.o. twice daily. Heart rate continues to be uncontrolled, he is currently on cardizem drip in addition to po metoprolol and amiodarone Likely that acute hypoxic respiratory failure is multifactorial related to acute CHF from arrhythmia, B/L pneumonia and RVP positive for rhinovirus/enterovirus infection. No evidence of PE on CTA performed on November 06, 2022. HE has failed several swallow evaluations. NGT was placed for tube feeding but patient has since removed the tube His new dysphagia may be related to reduced mentation, lethargy from metabolic encephalopathy. Stroke was ruled out via negative CT head. CT neck without ontsructive masses. Continues to have persisting fever, likely contributed by B/L DVT discovered yesterday. He was started on lovenox 1mg/kg sc q12h He is currently appropriately covered with meropenem, sputum culture has been ordered but yet to be collected. Urine Legionella and bacterial antigen panel is negative. MRSA nares is negative. Na improving to 151 but now that NGT out and pt unableto swallow, free water deficit will increase again. All updates discussed with family at bedside. additionally extra informtaion obtained from [place]. patient has had a grdual decline in cognition and independence since jul 2022. He mostlu remians in bed, does not walk much due to gait instability, has had worsening dementia, he is fidgety and at high chance of pulling out PEG tube. He has not had a complete conversation in many weeks, preferring to answer yes and no. Since being admitted here on 11/03 patient has had multiple issues as outlined above, however in spite of medical issues being addressed, he has not had a significant global improvement. He continues to be very deconditioned, laying in bed, unable to be independent, speaks only a few words in conversation. He is uncomfortable from retaining secretions and inability to swallow. Given his other advanced comorbidities, placing a PEG tube will likely not translate into global improvement. Patient's family has been reconsidering placing PEG and after discussion with other family members have made the decision to transition patient to hospice care. Change abx to po D/c cardizem drip, start 120mg po BID added prn morphine and ativan for pain and anxiety management plan for transfer back to [place] tomorrow with hospice. Attestations Medical Necessity Statement*: extensive GOC discussion today Coding Level of Care Code Acute Code for Chg Fwd High Time for a total of 75 minutes, includes reviewing past or interval history, examining/interviewing patient, placing orders, counseling patient/family/other support, updating patient/family/other support, discussing plan of care with staff, communicating with other healthcare providers, documenting encounter and coordinating care Diagnoses Acute hypoxemic respiratory failure J96.01 Dyspnea R06.02 Dyspnea type: shortness of breath Septic shock A41.9; R65.21 Aspiration into respiratory tract T17.908A Encounter type: initial encounter Systolic heart failure I50.20 CHF exacerbation I50.9 AMS (altered mental status) R41.0 Altered mental status type: delirium Leukocytosis D72.829 Hypomagnesemia E83.42 Hypophosphatasia E83.39
[2022-11-10 22:33] LABS: Glucose Point of Care 112 mg/dL (70-110)
[2022-11-11] VITALS (10 sets, daily range): BP systolic 118–128; BP diastolic 62–80; PULSE 76–110; RESP 13–22; TEMP 36.7–36.8; O2SAT 91–98
[2022-11-11] MEDS: levalbuterol 0.63 mg/3 mL Neb INHALATION ×4 (00:32→12:02)
[2022-11-11] MEDS: enoxaparin 100 mg/mL Syringe 90 MG SUBCUT (05:39)
[2022-11-11 07:10] LABS: Glucose Point of Care 92 mg/dL (70-110)
[2022-11-11] MEDS: dilTIAZem ER (12HR) 60 mg Capsule 120 MG PO (09:01)
[2022-11-11] MEDS: amiodarone 200 mg Tablet 400 MG PO (09:01)
[2022-11-11] MEDS: divalproex DR 250 mg Tablet PO (09:02)
[2022-11-11] MEDS: sertraline 100 mg Tablet 200 MG PO (09:02)
[2022-11-11] MEDS: amoxicillin-clav 875-125 mg Tablet 1 TAB PO (09:02)
[2022-11-11] MEDS: pantoprazole 40 mg SDV IVP (10:34)
--- NOTE | 2022-11-11 11:21 | P.DS_ITS ---
Discharge Providers Date of Admission: 11/03/22 18:24 Date of Discharge: November 11, 2022 Attending Provider at Admission: Hema Boykin MD Attending Provider at Discharge: Emir Aburto MD Diagnoses at Discharge Discharge Diagnosis (1) Acute hypoxemic respiratory failure: Status: Acute (2) Dyspnea: Status: Acute Qualifiers: Dyspnea type: shortness of breath Qualified Code(s): R06.02 - Shortness of breath (3) Septic shock: Status: Acute (4) Aspiration into respiratory tract: Status: Acute Qualifiers: Encounter type: initial encounter Qualified Code(s): T17.908A - Unspecified foreign body in respiratory tract, part unspecified causing other injury, initial encounter (5) Systolic heart failure: Status: Acute (6) CHF exacerbation: Status: Acute (7) AMS (altered mental status): Status: Acute Qualifiers: Altered mental status type: delirium Qualified Code(s): R41.0 - Disorientation, unspecified (8) Leukocytosis: Status: Acute (9) Hypomagnesemia: Status: Acute (10) Hypophosphatasia: Status: Acute Reason for Visit Reason for Visit: resp failure/sepsis Hospital Course Hospital Course 77M with advanced parkinson's disease, advanced dementia, significant limitations of ADLs. Presented initially to outside hospital with respiratory distress.? Requirement of 12 L/min via nonrebreather. Transferred here to the ICU on November 03 where he was found to have evidence of SVT versus A-fib, metabolic encepahlopathy and septic shock. He was given adenosine and then cardioverted. He is currently on amiodarone 400 mg p.o. twice daily and cardizem. Likely that acute hypoxic respiratory failure is multifactorial related to acute CHF from arrhythmia, B/L pneumonia and RVP positive for rhinovirus/enterovirus infection. No evidence of PE on CTA performed on November 06, 2022. He had witnessed aspiration events in the hospital. HE has failed several swallow evaluations. Ct neck is normal. NGT was placed for tube feeding but patient has since removed the tube. dysphagia may be worsened to reduced mentation, lethargy from metabolic encephalopathy.? Stroke was ruled out via negative CT head. CT neck without obstructive masses. HE continues to have persisting fever, likely contributed by B/L DVT discovered on 11/10. He was started on lovenox 1mg/kg sc q12h. he had hypernatremia which was being treated. but best at 150. Extra informtaion obtained from [place] where patient is a resident. patient has had a grdual decline in cognition and independence since jul 2022. He mostly remains in bed, does not walk much due to gait? instability, has had worsening dementia, has dysohagia for which he is on a mechanical soft diet, he is fidgety and at high chance of pulling any tubes or catheters. He has not had a complete conversation in many weeks, preferring to answer yes and no. Since being admitted here on 11/03 patient has had multiple issues as outlined above, however in spite of medical issues being addressed, he has not had a significant global improvement. He continues to be very deconditioned, laying in bed, unable to be independent, speaks only a few words in conversation. He is uncomfortable from retaining secretions and inability to swallow. Given his other advanced comorbidities, placing a PEG tube will likely not translate into global improvement. Patient's family has been in discussion discussion with multiple family members and have made the decision to transition patient to hospice care. His sister is his DPOA and has made the decision since the patient is confused and disoriented and unable to understand his care at this time. He is returning to [place] with hospice Physical Exam Narrative: General: No acute distress, AO x1-2 HEENT: PERRLA, pupils bilaterally equal and reactive, pallors not present Chest: coarse B/L breath sounds. CVS: S1-S2 regular, no murmurs, no tachycardia, no gallops, no rubs Abdomen: Soft, nontender, no organomegaly, bowel sounds present Neuro: No focal deficits, no facial deformity, AO x1, moves extremities in bed, fidgety Urinary Catheter Management: [place]: Cath Placed During This Visit: no Reason for Continuing Indwelling Catheter: Acute Urinary Retention or Obstruction Discharge Data Studies Completed and Pending Completed Studies During Hospitalization Category Date Time Status CT abdomen pelvis w con* [id number] Routine Cat Scan 11/09/22 15:[address] head wo con* [id number] Routine Cat Scan 11/06/22 14:[address] neck w con* [id number] Routine Cat Scan 11/09/22 15:54 Completed CTA PE [CT angio chest PE protcl [id number]] Routine Cat Scan 11/06/22 14:09 Completed CXRP [XR chest 1V portable [id number]] Routine Exams 11/05/22 07:02 Completed CXRP [XR chest 1V portable [id number]] Routine Exams 11/09/22 16:10 Completed CXRP [XR chest 1V portable [id number]] Urgent Exams 11/07/22 12:34 Completed CXRP [XR chest 1V portable [id number]] Urgent Exams 11/07/22 15:33 Completed XR chest 1V portable [id number] Stat Exams 11/03/22 18:27 [place] [id number] Routine Ultrasound 11/09/22 15:58 Completed CV. echo complete* [id number] Routine Ultrasound 11/04/22 06:00 Completed Pending at discharge Category Date Time Status Blood Culture AM LABS Lab 11/09/22 00:51 Results Sputum Culture Stat Lab 11/03/22 18:27 Uncollected Sputum Culture and Gram Stain Stat Lab 11/03/22 18:27 Uncollected Sputum Culture and Gram Stain Stat Lab 11/09/22 15:58 Uncollected Radiology Impressions Chest CTA 11/06/22 14:09 IMPRESSION: 1. No evidence for pulmonary embolus. 2. Multilobar pneumonia with dense consolidation in the posterior lower lobes. 3. Trace pleural effusions. 4. Multiple low-density nodules in the liver. Metastatic disease is not excluded. Follow-up with liver MRI is recommended. 5. Cholelithiasis. Head CT 11/06/22 14:09 IMPRESSION: No acute intracranial abnormality. Abdomen/Pelvis CT 11/09/22 15:54 IMPRESSION: 1. Cholelithiasis without cholecystitis . 2. Bibasilar consolidations concerning for pneumonia. 3. 3 mm nonobstructing right renal pelvis stone. Neck CT 11/09/22 15:54 IMPRESSION: 1. NGT present, which loops/coils in the hypopharynx. The tip is present below the topogram, at least in the lower esophagus. Advise correlation. 2. Hazy upper lung infiltrates/pneumonia. 3. Very small right pleural effusion. 4. No suspicious neck mass or bulky cervical lymphadenopathy visualized. 5. Mild sinus disease. Venous Duplex 11/09/22 15:58 IMPRESSION: Positive for deep vein thrombosis bilaterally, as noted above. ADDENDUM: 11/09/22 [id number] THIS REPORT CONTAINS FINDINGS THAT MAY BE CRITICAL TO PATIENT CARE. The findings were verbally communicated via telephone conference with EMIR ABURTO at 5:47 PM CDT on 11/09/2022. The findings were acknowledged and understood. Chest X-Ray 11/09/22 16:10 IMPRESSION: Minimal change compared with the previous except for the distal repositioning of the enteric tube. Laboratory Results WBC 7.6 10^3/uL (4.0-10.0) 11/10/22 06:24 RBC 4.61 10^6/uL (4.1-5.3) 11/10/22 06:24 Hgb 13.8 g/dL (11.7-16.6) 11/10/22 06:24 Hct 44.0 % (42.0-52.0) 11/10/22 06:24 MCV 95.4 fl (80-94) H 11/10/22 06:24 MCH 29.9 pg (28.0-34.0) 11/10/22 06:24 MCHC 31.4 g/dL (30.0-36.0) 11/10/22 06:24 RDW 13.8 % (12.1-15.1) 11/10/22 06:24 Plt Count 200 10^3/cmm (130-400) 11/10/22 06:24 MPV 9.6 fL (7.4-10.4) 11/10/22 06:24 Neut % (Auto) 56.0 % 11/10/22 06:24 Lymph % (Auto) 24.0 % 11/10/22 06:24 [place] % (Auto) 12.1 % 11/10/22 06:24 Eos % (Auto) 6.0 % 11/10/22 06:24 Baso % (Auto) 0.7 % 11/10/22 06:24 Neut # (Auto) 4.27 10^3/uL (1.8-7.7) 11/10/22 06:24 Lymph # (Auto) 1.8 10^3/uL (0.8-4.8) 11/10/22 06:24 [place] # (Auto) 0.9 10^3/uL (0.2-0.9) 11/10/22 06:24 Eos # (Auto) 0.5 10^3/uL (0.0-0.8) 11/10/22 06:24 Baso # (Auto) 0.1 10^3/uL (0.0-0.1) 11/10/22 06:24 Nucleated RBC % (auto) 0 % 11/10/22 06:24 Nucleated RBCs # 0.0 /100WBC 11/10/22 06:24 PT 14.10 SECONDS (12.1-14.9) 11/03/22 19:00 INR 1.06 (0.8-1.2) 11/03/22 19:00 APTT 29.2 SECONDS (23.9-36.7) 11/03/22 19:00 Specimen Type Arterial 11/06/22 15:15 Sample Site Brachial, right 11/06/22 15:15 ABG pH 7.41 (7.35-7.45) 11/06/22 15:15 ABG pCO2 47.2 mmHg (35-45) H 11/06/22 15:15 ABG pO2 89.2 mmHg (80.0-100.0) 11/06/22 15:15 ABG HCO3 30.0 mmol/L (22-26) H 11/06/22 15:15 ABG O2 Saturation 99.7 11/05/22 07:24 ABG Base Excess 4.5 mmol/L (-2.0-2.0) H 11/06/22 15:15 José Luis Test N/a 11/06/22 15:15 A-a O2 Gradient Not Reportable 11/05/22 07:24 Hematocrit 42.9 % (42-52) 11/06/22 15:15 Hgb O2 Saturation 98.1 % (95-100) 11/05/22 07:24 Carboxyhemoglobin 0.8 %THgb (0.4-20.1) 11/05/22 07:24 Methemoglobin 0.8 % (0.4-1.5) 11/05/22 07:24 Total Hemoglobin 13.4 g/dL (14-18) L 11/05/22 07:24 Sodium 146.0 mmol/L (131-143) H 11/05/22 07:24 Potassium 3.8 mmol/L (3.5-5.0) 11/05/22 07:24 Glucose 123.0 mg/dL (70-115) H 11/05/22 07:24 Ionized Calcium 1.2 mmol/L (1.1-1.4) 11/05/22 07:24 O2 Delivery Device Nc 11/06/22 15:15 O2 Liters/Min 4.0 % 11/06/22 15:15 FiO2 36.0 % 11/06/22 15:15 Pediatric Rn ID Gd 11/06/22 15:15 Sodium 151 mmol/L (136-145) H 11/10/22 06:24 Potassium 3.0 mmol/L (3.5-5.1) L 11/10/22 06:24 Chloride 110 mmol/L (98-107) H 11/10/22 06:24 Carbon Dioxide 34 mmol/L (22-29) H 11/10/22 06:24 Anion Gap 10.0 (5-19) 11/10/22 06:24 BUN 16 mg/dL (8-23) 11/10/22 06:24 Creatinine 0.7 mg/dL (0.7-1.2) 11/10/22 06:24 GFR Calculation Not Reportable 11/10/22 06:24 Glucose 114 mg/dL (65-115) 11/10/22 06:24 POC Glucose 92 mg/dL (70-110) 11/11/22 06:29 Estimat Average Glucose 97 11/03/22 19:00 Hemoglobin A1c 5.0 % (4.0-6.0) 11/03/22 19:00 Calculated Osmolality 314 mOsm/kg (285-295) H 11/10/22 06:24 Lactic Acid 2.8 mmol/L (0.5-2.2) H 11/04/22 05:15 Calcium 8.6 mg/dL (8.5-10.5) 11/10/22 06:24 Phosphorus 1.4 mg/dL (2.5-4.5) L 11/05/22 03:49 Magnesium 1.7 mg/dL (1.7-2.3) 11/09/22 00:49 Total Bilirubin 0.5 mg/dL (0.15-1.2) 11/10/22 06:24 AST 15 U/L (0-40) 11/10/22 06:24 ALT 14 U/L (0-41) 11/10/22 06:24 Alkaline Phosphatase 51 U/L (40-130) 11/10/22 06:24 Troponin T Gen 5 ng/L 29 ng/L (0-15) H 11/03/22 19:00 NT-Pro-B Natriuret Pep 2905 pg/mL (0-450) H 11/04/22 05:15 Total Protein 5.6 g/dL (6.6-8.7) L 11/10/22 06:24 Albumin 2.8 g/dL (3.5-5.2) L 11/10/22 06:24 Globulin 2.8 g/dL (1.3-4.6) 11/10/22 06:24 Triglycerides 59 mg/dL (0-150) 11/03/22 19:00 Cholesterol 165 mg/dL (0-200) 11/03/22 19:00 LDL Cholesterol, Calc 101 mg/dL (50-129) 11/03/22 19:00 HDL Cholesterol 52 mg/dL (60-100) L 11/03/22 19:00 LDL/HDL Ratio 1.94 RATIO (0.00-3.22) 11/03/22 19:00 Cholesterol/HDL Ratio 3.17 mg/dL (1.0-5.00) 11/03/22 19:00 TSH 2.38 uIU/mL (0.27-4.20) 11/03/22 19:00 Free T4 0.85 ng/dL (0.82-1.77) 11/03/22 19:00 Urine Color Dark yellow (Yellow) 11/03/22 21:40 Urine Appearance Hazy (CLEAR) A 11/03/22 21:40 Urine pH 5 (5-7) 11/03/22 21:40 Ur Specific [place] 1.020 (1.005-1.030) 11/03/22 21:40 Urine Protein 1+ (Negative) H 11/03/22 21:40 Urine Glucose (UA) Norm (Normal) 11/03/22 21:40 Urine Ketones 1+ (Negative) H 11/03/22 21:40 Urine Blood 3+ (Negative) H 11/03/22 21:40 Urine Nitrate Negative (Negative) 11/03/22 21:40 Urine Bilirubin 1+ (Negative) H 11/03/22 21:40 Urine Urobilinogen 4 mg/dL (Negative) H 11/03/22 21:40 Ur Leukocyte Esterase 1+ (Negative) H 11/03/22 21:40 Urine RBC >100 /hpf (0-2) H 11/03/22 21:40 Urine WBC 5-10 /hpf (0-5) H 11/03/22 21:40 Ur Squamous Epith Cells 0-4 /hpf (0-5) H 11/03/22 21:40 Ur Transition Epith Cell 5-10 /hpf 11/03/22 21:40 Amorphous Sediment 1+ /hpf 11/03/22 21:40 Urine Bacteria 1+ /hpf (NONE) H 11/03/22 21:40 Hyaline Casts >100 /lpf H 11/03/22 21:40 Urine Mucus 1+ /hpf 11/03/22 21:40 Nasal Influ A H1 2008 PCR Not detected (NOT DETECT) 11/06/22 15:15 Vancomycin Trough 15.9 ug/mL (10-15) H 11/07/22 08:51 Adenovirus (PCR) Not detected (NOT DETECT) 11/06/22 15:15 C. pneumoniae DNA (PCR) Not detected (NOT DETECT) 11/06/22 15:15 Coronavirus 229E (PCR) Not detected (NOT DETECT) 11/06/22 15:15 Human Metapneumovir PCR Not detected (NOT DETECT) 11/06/22 15:15 Influenza A (H1) PCR Not detected (NOT DETECT) 11/06/22 15:15 Influenza A (H3) PCR Not detected (NOT DETECT) 11/06/22 15:15 Influenza Type A (PCR) Not detected (NOT DETECT) 11/06/22 15:15 Influenza Type B (PCR) Not detected (NOT DETECT) 11/06/22 15:15 M. pneumoniae (PCR) Not detected (NOT DETECT) 11/06/22 15:15 Parainfluenza 1 (PCR) Not detected (NOT DETECT) 11/06/22 15:15 Parainfluenza 2 (PCR) Not detected (NOT DETECT) 11/06/22 15:15 Parainfluenza 3 (PCR) Not detected (NOT DETECT) 11/06/22 15:15 Parainfluenza 4 (PCR) Not detected (NOT DETECT) 11/06/22 15:15 RSV Type A (PCR) Not detected (NOT DETECT) 11/06/22 15:15 RSV Type B (PCR) Not detected (NOT DETECT) 11/06/22 15:15 Entero/Rhino (PCR) Detected (NOT DETECT) A 11/06/22 15:15 SARS-CoV-2 (PCR) Not detected (NOT DETECT) 11/06/22 15:15 Vitals Last Vital Signs Temp 98.2 F 11/11/22 08:00 Pulse 79 11/11/22 08:00 Resp 15 11/11/22 08:00 BP 125/69 11/11/22 08:00 Pulse Ox 91 11/11/22 08:00 O2 Del Method 11/11/22 07:46 O2 Flow Rate 5 11/11/22 07:46 FiO2 60 11/05/22 06:00 Discharge Plan Discharge Patient Disposition: Hospice - Medical Facility Condition: Fair Prescriptions: New acetaminophen 325 mg Tablet 650 mg PO Q6H PRN (Reason: Mild Pain) Qty: 0 0RF amoxicillin-pot clavulanate 875-125 mg Tablet 1 tab PO BID 5 Days Qty: 10 0RF Continued baclofen 10 mg tablet 5 mg PO BID divalproex 250 mg tablet,delayed release (DR/EC) 250 mg PO BID furosemide 40 mg tablet 40 mg PO DAILY hydrocodone-acetaminophen 5-325 mg tablet 1 tab PO PRN Rx Instructions: q12h prn sertraline 100 mg tablet 200 mg PO DAILY Colace 100 mg Capsule 100 mg PO BID gabapentin 100 mg capsule 200 mg PO TID melatonin 5 mg Tablet 5 mg PO BEDTIME Discontinued potassium chloride 10 mEq tablet extended release 10 meq PO DAILY aspirin 81 mg Tablet,Chewable 81 mg PO DAILY cholecalciferol (vitamin D3) 50 mcg (2,000 unit) Tablet 2,000 mcg PO DAILY Discharge Orders: Discharge Order (Routine); Ordered 11/11/22 Ordered By: Emir Aburto Referrals: [facility] [Other] (You will return to [facility]. If you have any questions or concerns please contact them at [phone].) [facility] [Other] ([facility] accepted you for services. If you have any questions or concerns please contact them at [phone].) Discharge Diet: Usual diet Discharge Activity: Resume usual activity Patient Instructions: Opioid Safety Discharge Attestations Time Spent in Discharge Care*: greater than 30 min Quality Metrics Clinical Quality Measures [ No reported AMI, CVA or VTE this stay] Coding Level of Care Code Acute Code for Chg Fwd Diagnoses Acute hypoxemic respiratory failure J96.01 Dyspnea R06.02 Dyspnea type: shortness of breath Septic shock A41.9; R65.21 Aspiration into respiratory tract T17.908A Encounter type: initial encounter Systolic heart failure I50.20 CHF exacerbation I50.9 AMS (altered mental status) R41.0 Altered mental status type: delirium Leukocytosis D72.829 Hypomagnesemia E83.42 Hypophosphatasia E83.39
[2022-11-11 11:53] LABS: Glucose Point of Care 108 mg/dL (70-110)
[2022-11-11 12:25] LABS: SARS Covid-2 Antigen negative (Negative)
== END 2022-11-11 14:23 | disposition hospice, home (50) | DRG 871 ==
LOC: ICU 11-10 09:21 → MEDSURG 11-10 15:56
PROVIDERS: Admitting Provider Family Medicine; Visit Provider Student in an Organized Health Care Education/Training Program
DX: A41.9 Sepsis, unspecified organism (principal); G93.41 Metabolic encephalopathy; J96.01 Acute respiratory failure with hypoxia; R65.21 Severe sepsis with septic shock; J96.02 Acute respiratory failure with hypercapnia; I50.21 Acute systolic (congestive) heart failure; J12.89 Other viral pneumonia; I82.413 Acute embolism and thrombosis of femoral vein, bilateral; I82.433 Acute embolism and thrombosis of popliteal vein, bilateral; I82.453 Acute embolism and thrombosis of peroneal vein, bilateral; I82.442 Acute embolism and thrombosis of left tibial vein; E87.0 Hyperosmolality and hypernatremia; I48.91 Unspecified atrial fibrillation; G20 Parkinson's disease; F02.80 Dementia in other diseases classified elsewhere, unspecified severity, without behavioral disturbance, psychotic disturbance, mood disturbance, and anxiety; B97.89 Other viral agents as the cause of diseases classified elsewhere; Z51.5 Encounter for palliative care; Z79.891 Long term (current) use of opiate analgesic; T17.918A Gastric contents in respiratory tract, part unspecified causing other injury, initial encounter; F41.1 Generalized anxiety disorder; F32.9 Major depressive disorder, single episode, unspecified; Z66 Do not resuscitate; E83.42 Hypomagnesemia; I95.9 Hypotension, unspecified; X58.XXXA Exposure to other specified factors, initial encounter
CPT/HCPCS: 36415; 36416; 36600; 70450; 70491; 71045; 71275; 74177; 80051; 80053; 80061; 80069; 80202; 81001; 82040; 82330; 82803; 82805; 82947; 82962; 83036; 83605; 83735; 83880; 84100; 84439; 84443; 84484; 85025; 85610; 85730; 86403; 87040; 87086; 87426; 87449; 87486; 87581; 87633; 87641; 92523; 92526; 92610; 93005; 93306; 93970; 94640; 94660; 94664; 96372; 96376; 97162; 97165; A4570; C9113; J0282; J0456; J1650; J1940; J2185; J2270; J3370; J3475; J3490; J7042; J7050; J7060; J7070; J7614; J7644; P9045; Q9967